=== PATIENT | female | born 1965 | race Caucasian/White ===

== ENCOUNTER 2018-10-19 08:39 | Emergency (ER) | payer MEDICAID ==
[~2018-10-19] VITALS: Ht 175.3 cm; Wt 58.8 kg
[2018-10-19 08:49] VITALS: BP 127/80
[2018-10-19] MEDS ORDERED: CEPH-572 PO (09:38)
[2018-10-19] MEDS ORDERED: SULF1TAB49 PO (09:38)
== END 2018-10-19 09:56 | disposition home or self-care (01) ==
LOC: ER 08:40
DX: L03.011 Cellulitis of right finger (principal); F17.200 Nicotine dependence, unspecified, uncomplicated; Z88.1 Allergy status to other antibiotic agents; Z88.8 Allergy status to other drugs, medicaments and biological substances; Z79.899 Other long term (current) drug therapy
CPT/HCPCS: 73130; 99283

== ENCOUNTER 2019-04-10 10:10 | Inpatient (IN) | payer MEDICAID ==
[~2019-04-10] VITALS: Ht 172.7 cm; Wt 74.5 kg
[~2019-04-10 10:10] MED LIST: atropine 0.1mg/ml 10ml syringe ONE; calcium chloride 100 MG/1 ML inj IV ONE; dextrose 50%-water 50ml dispensing syringe IV ONE; epiNEPHrine 0.1mg/ml 10ml syringe ONE; sodium bicarbonate (8.4%) 1 mEq/ml syringe ONE
--- NOTE | 2019-04-10 10:20 | NUR ---
CALLED PT TO TRIAGE AND SHE IS IN LOBBY BATHROOM
[2019-04-10 11:40] LABS: BASOPHILS # (AUTO) 0.1 X10'3 (0-0.2); BASOPHILS % (AUTO) 0.2 % (0-1); EOSINOPHILS % (AUTO) 0.2 % (0-6); HEMATOCRIT 57.2 % (35.0-45.0); LYMPHOCYTES # (AUTO) 3.3 X10'3 (1.1-4.8); LYMPHOCYTES % (AUTO) 10.9 % (21-51); MEAN CORPUSCULAR HEMOGLOBIN 30.1 PG (27.0-31.0); MEAN CORPUSCULAR HGB CONC 32.6 g/dL (33.0-36.5); MEAN CORPUSCULAR VOLUME 92.5 FL (78-98); MONOCYTES # (AUTO) 1.9 X10'3 (0-0.9); MONOCYTES % (AUTO) 6.3 % (2-12); NEUTROPHILS # (AUTO) 24.7 X10'3 (1.8-7.7); NEUTROPHILS % (AUTO) 82.4 % (42-75); PLATELET COUNT 457 X10'3 (140-440); RED BLOOD COUNT 6.19 X10'6 (4.20-5.60); RED CELL DISTRIBUTION WIDTH 13.7 % (11.5-14.5)
[2019-04-10 11:49] LABS: HEMOGLOBIN 18.6 g/dl (12.0-16.0); WHITE BLOOD COUNT 29.9 X10'3 (4.5-11.0)
[2019-04-10 12:04] LABS: ALANINE AMINOTRANSFERASE 80 U/L (12-78); ALBUMIN 2.8 G/DL (3.4-5.0); ALBUMIN/GLOBULIN RATIO 0.5 (1.1-1.5); ALKALINE PHOSPHATASE 122 IU/L (46-116); ANION GAP 13 (8-16); ASPARTATE AMINO TRANSFERASE 54 U/L (10-37); BILIRUBIN,TOTAL 0.5 MG/DL (0.1-1.0); BLOOD UREA NITROGEN 30 MG/DL (7-18); BUN/CREATININE RATIO 19.7 (6.6-38.0); CALCIUM 9.5 MG/DL (8.5-10.1); CHLORIDE 95 MMOL/L (99-107); CREATININE 1.52 MG/DL (0.40-0.90); GLUCOSE 202 MG/DL (70-104); POTASSIUM 4.7 MMOL/L (3.5-5.1); SODIUM 129 MMOL/L (135-145); TOTAL CARBON DIOXIDE 21.1 MMOL/L (24-32); TOTAL PROTEIN 7.9 G/DL (6.4-8.2); eGFR 36 ML/MIN
[2019-04-10 12:54] LABS: PLATELET ESTIMATE INCREASED; TOTAL CELLS COUNTED 100; TOXIC GRANULATION 2+
[2019-04-10] MEDS ORDERED: morphine 4 MG/ML inj SYRINge IV ONE ×2 (13:35→15:55)
[2019-04-10] MEDS ORDERED: normal saline 1000ML IV soln IVB ONE ×2 (13:45→14:40)
[2019-04-10 14:35] LABS: BASOPHILS # (AUTO) 0.1 X10'3 (0-0.2); BASOPHILS % (AUTO) 0.2 % (0-1); EOSINOPHILS % (AUTO) 0.1 % (0-6); LYMPHOCYTES # (AUTO) 2.3 X10'3 (1.1-4.8); LYMPHOCYTES % (AUTO) 7.4 % (21-51); MEAN CORPUSCULAR HGB CONC 33.4 g/dL (33.0-36.5); MEAN CORPUSCULAR VOLUME 92.7 FL (78-98); MEAN PLATELET VOLUME 9.2 FL (7.4-10.4); MONOCYTES # (AUTO) 2.1 X10'3 (0-0.9); MONOCYTES % (AUTO) 6.8 % (2-12); NEUTROPHILS % (AUTO) 85.5 % (42-75); PLATELET COUNT 414 X10'3 (140-440); RED BLOOD COUNT 5.82 X10'6 (4.20-5.60); RED CELL DISTRIBUTION WIDTH 13.7 % (11.5-14.5)
[2019-04-10 14:37] LABS: WHITE BLOOD COUNT 30.4 X10'3 (4.5-11.0)
[2019-04-10] MEDS ORDERED: vancomycin/NS 1 GM ADD-VANTAGE 250 ML IV ONE (14:40)
[2019-04-10] MEDS ORDERED: piperacillin/tazo 3.375gm/50ml 50 ML IV ONE (14:40)
[2019-04-10 14:47] LABS: PARTIAL THROMBOPLASTIN TIME 31 SECONDS (22-32)
[2019-04-10 15:06] LABS: URINE HCG NEGATIVE (NEG)
[2019-04-10 15:07] LABS: CLARITY,URINE SLIGHTLY CLOUDY (Clear); COLOR,URINE YELLOW (Yellow); GLUCOSE, URINE NEGATIVE (Neg); KETONES,URINE NEGATIVE (Neg); LEUKOCYTE ESTERASE ,URINE NEGATIVE (Neg); NITRITES, URINE NEGATIVE (Neg); OCCULT BLOOD,URINE TRACE-INTACT (Neg); PH,URINE 5.5 (4.8-8.0); PROTEIN,URINE 30 mg/dl (Neg); UROBILINOGEN,URINE 0.2 E.U/dL (0.2-1.0)
[2019-04-10 15:08] LABS: UA COLLECTION TYPE CLN CATCH MIDSTREAM
[2019-04-10 15:18] LABS: BACTERIA,URINE FEW /HPF (Neg); RBC,URINE 0-2 /HPF (0-2)
[2019-04-10 15:19] LABS: FINE GRANULAR CAST 0-3 /LPF (NEGATIVE); HYALINE CASTS >30 /LPF (NEGATIVE); MUCUS STRANDS FEW /LPF (Neg); SQUAMOUS EPITHELIAL CELL,UR MODERATE /LPF (FEW); TRANSITIONAL EPI CELLS,URINE FEW /HPF; WBC CLUMPS,URINE FEW /HPF (NEGATIVE)
[2019-04-10 15:36] LABS: MAGNESIUM 1.9 MG/DL (1.5-2.4)
[2019-04-10] MEDS ORDERED: HYDR-4353 PO (16:23)
[2019-04-10] MEDS ORDERED: IBUP-1986 PO (16:23)
[2019-04-10] MEDS ORDERED: mag hydrox/Alum hydrox/simeth 30ml oral suspension PO PRN (16:25)
[2019-04-10] MEDS ORDERED: ondansetron/PF 4mg/2ml inj IV PRN (16:25)
[2019-04-10] MEDS ORDERED: acetaminophen 325mg tablet PO PRN ×2 (16:25)
[2019-04-10] MEDS ORDERED: morphine 2 MG/ML inj. syringe IV PRN (16:25)
[2019-04-10] MEDS ORDERED: potassium Cl 20 mEq SR tablet PO PRN ×2 (16:25)
[2019-04-10] MEDS ORDERED: magnesium 2GM in 50ml NS 50 ML IV PRN (16:25)
[2019-04-10] MEDS ORDERED: magnesium Cl slow-release 64mg tablet PO PRN (16:25)
[2019-04-10] MEDS ORDERED: HYDROcodone/acetaminophen 5mg/325mg tablet PO PRN (16:25)
[2019-04-10] MEDS ORDERED: potassium CL 10mEq/100ml bag 100 ML IV PRN ×2 (16:25)
[2019-04-10] MEDS ORDERED: magnesium 4gm in 100ml NS 100 ML IV PRN (16:25)
[2019-04-10] MEDS ORDERED: magnesium hydroxide 30ml (MOM) UD suspension PO PRN (16:25)
[2019-04-10] MEDS ORDERED: HYDR-3972 PO (16:28)
[2019-04-10] MEDS: normal saline 1000ml 1,000 ML IV SCH (17:10)
--- NOTE | 2019-04-10 18:25 | NUR ---
PT UP TO THE BATHROOM TO VOID. SHE LIMPS. SHE SAID THAT THIGH IS PRETTY TENDER.
--- NOTE | 2019-04-10 18:43 | NUR ---
PT ASLEEP RIGHT NOW, HER DINNER TRAY AT BS.
[2019-04-10] MEDS ORDERED: sodium bicarbonate (8.4%) 1 mEq/ml syringe ONE (20:00)
[2019-04-10] MEDS ORDERED: sod chloride 0.9% 10ml flush syringe IV ONE (20:00)
[2019-04-10] MEDS ORDERED: epiNEPHrine 0.1mg/ml 10ml syringe ONE (20:00)
[2019-04-10] MEDS ORDERED: calcium chloride 100 MG/1 ML inj IV ONE (20:00)
[2019-04-10] MEDS: HYDROcodone/acetaminophen 10/325mg tab PO PRN (20:25)
--- NOTE | 2019-04-10 20:30 | NUR ---
pt didn't eat too much of her meal. she did drink juices and eat salad. adm pain meds
[2019-04-10] MEDS: morphine 2 MG/ML inj. syringe IV PRN (22:54)
[2019-04-10] MEDS: lactobacillus rhamnosus 10,000 MMU CELLS/CAPSULE PO SCH (22:57)
[2019-04-11] VITALS: BP 155/92
[2019-04-11] MEDS ORDERED: piperacillin/tazo 3.375gm/50ml 50 ML IV SCH
[2019-04-11] MEDS: normal saline 1000ml 1,000 ML IV SCH ×2 (01:01→11:30)
[2019-04-11] MEDS: HYDROcodone/acetaminophen 10/325mg tab PO PRN (02:17)
--- NOTE | 2019-04-11 06:15 | NUR ---
Patient in room IVORY 347. I have received report from NICOLE Hampton and had the opportunity to ask questions and assume patient care.
[2019-04-11 06:30] VITALS: BP 174/100
--- NOTE | 2019-04-11 06:30 | NUR ---
Problems reprioritized. Patient report given, questions answered & plan of care reviewed with Maida RN.
[2019-04-11] MEDS: K and/or MAG REPLACEMENT MC SCH (07:31)
[2019-04-11] MEDS: morphine 2 MG/ML inj. syringe IV PRN ×2 (07:59→19:54)
[2019-04-11] MEDS ORDERED: vancomycin/NS 1 GM ADD-VANTAGE 250 ML IV SCH (08:00)
[2019-04-11] MEDS: enoxaparin 40mg/0.4ml syringe SQ SCH (08:03)
[2019-04-11] MEDS: lactobacillus rhamnosus 10,000 MMU CELLS/CAPSULE PO SCH ×2 (08:03→19:53)
[2019-04-11] MEDS: piperacillin/tazo 3.375gm/50ml 50 ML IV SCH ×2 (10:44→17:50)
--- NOTE | 2019-04-11 10:56 | NUR ---
Dr. Rosado notified of pt BP is 219/118, 194/106 hr 94, this morning was 174/100 hr 89. Not on any BP meds. She is feeling nauseated and clammy, diaphoretic.
[2019-04-11 11:00] VITALS: BP 194/106
--- NOTE | 2019-04-11 11:04 | NUR ---
Patient's primary RN, Maida, aware of patient's hypertension, symptoms and that Dr. Rosado notified.
[2019-04-11] MEDS: hydrALAZINE 20mg/ml inj. IV PRN (11:27)
[2019-04-11 12:00] VITALS: BP 149/94
[2019-04-11] MEDS ORDERED: proCHLORperazine 10 MG/2 ml inj IV PRN (12:05)
--- NOTE | 2019-04-11 12:28 | NUR ---
Malnutrition consult re: Wt loss with decreased appetite. Patient's current scaled wt is stable with documented wt of 58.8 kg using chair scale in September of this year. Pt currently on a heart healthy diet with documented 25% PO intake of breakfast with 100% PO intake of milk. Pt with mild 2+ edema to her left side and no decrease in muscle strength. Pt currently does not meet criteria for malnutrition. Will continue to follow and monitor need for ONS pending additional trends in PO intake. Addendum: 04/11/19 at [address] Amended: Links added.
--- NOTE | 2019-04-11 13:00 | NUR ---
Dr Rosado notified of pt has no IV currently & unable to place an IV, therefore unable to have CT w/contrast. Ordered to inform Dr Tafoya because he is who recommended that Dr Rosado order a CT w/contrast. Dr Tafoya states to get the CT w/contrast when an IV is obtained.
[2019-04-11 13:19] LABS: ALBUMIN 1.8 G/DL (3.4-5.0); ANION GAP 15 (8-16); BLOOD UREA NITROGEN 27 MG/DL (7-18); BUN/CREATININE RATIO 19.4 (6.6-38.0); CALCIUM 7.7 MG/DL (8.5-10.1); CHLORIDE 97 MMOL/L (99-107); CREATININE 1.39 MG/DL (0.40-0.90); GLUCOSE 238 MG/DL (70-104); MAGNESIUM 1.8 MG/DL (1.5-2.4); POTASSIUM 4.9 MMOL/L (3.5-5.1); SODIUM 126 MMOL/L (135-145); eGFR 40 ML/MIN
[2019-04-11 13:21] LABS: TOTAL CARBON DIOXIDE 14.3 MMOL/L (24-32)
--- NOTE | 2019-04-11 15:19 | NUR ---
dr. dickerson at [facility] for central line placement.
[2019-04-11] MEDS ORDERED: morphine 4 MG/ML inj SYRINge IM STA (15:24)
[2019-04-11] MEDS ORDERED: LIDOcaine 1% 30ml preserv. free vial IJ STA ×2 (15:36→15:39)
--- NOTE | 2019-04-11 15:42 | NUR ---
thom RN at bedside.
--- NOTE | 2019-04-11 15:49 | NUR ---
sap security architect to dress ccentral line.
[2019-04-11] MEDS ORDERED: iohexol 300mg/ml 100ml inj. ONE (16:18)
--- NOTE | 2019-04-11 17:00 | NUR ---
1500:Took pt to ER room 6 for central line placement via WC. After Central line xray completed pt transported via WC to CT scan then returned to 347A @ 1645.
[2019-04-11] MEDS: sodium bicarbonate (8.4%) inj. 100 MEQ in dextrose 5%-water 1,000 ML IV SCH (17:50)
[2019-04-11] MEDS: vancomycin/NS 1 GM ADD-VANTAGE 250 ML IV SCH (17:50)
[2019-04-11] MEDS ORDERED: sodium bicarbonate (8.4%) inj. 50 MEQ in normal saline 1000ml 1,000 ML IV SCH (17:55)
[2019-04-11 18:00] VITALS: BP 194/103
--- NOTE | 2019-04-11 18:30 | NUR ---
Problems reprioritized. Patient report given, questions answered & plan of care reviewed with NICOLE Driver.
--- NOTE | 2019-04-11 18:36 | NUR ---
Patient in room IVORY 347. I have received report from NICOLE Bey and had the opportunity to ask questions and assume patient care.
[2019-04-11 20:05] LABS: BASOPHILS # (AUTO) 0.1 X10'3 (0-0.2); BASOPHILS % (AUTO) 0.3 % (0-1); EOSINOPHILS % (AUTO) 0 % (0-6); HEMATOCRIT 52.3 % (35.0-45.0); HEMOGLOBIN 17.2 g/dl (12.0-16.0); LYMPHOCYTES # (AUTO) 1.6 X10'3 (1.1-4.8); LYMPHOCYTES % (AUTO) 5.1 % (21-51); MEAN CORPUSCULAR HEMOGLOBIN 30.5 PG (27.0-31.0); MEAN CORPUSCULAR HGB CONC 32.9 g/dL (33.0-36.5); MEAN CORPUSCULAR VOLUME 92.7 FL (78-98); MEAN PLATELET VOLUME 9.8 FL (7.4-10.4); MONOCYTES # (AUTO) 2.3 X10'3 (0-0.9); NEUTROPHILS # (AUTO) 28.1 X10'3 (1.8-7.7); NEUTROPHILS % (AUTO) 87.6 % (42-75); PLATELET COUNT 369 X10'3 (140-440); RED BLOOD COUNT 5.63 X10'6 (4.20-5.60)
[2019-04-11 20:09] LABS: WHITE BLOOD COUNT 32.1 X10'3 (4.5-11.0)
[2019-04-11 20:30] VITALS: BP 143/91
[2019-04-11 21:49] LABS: ANISOCYTOSIS 1+; PLATELET ESTIMATE NORMAL; TOTAL CELLS COUNTED 100; TOXIC GRANULATION 1+
[2019-04-11] MEDS ORDERED: dextrose ORAL solution 15 GM/59 ML bottle PO PRN ×2 (22:05)
[2019-04-11] MEDS ORDERED: insulin Lispro (HumaLOG) vial - multi-dose SQ SCH (22:05)
[2019-04-11] MEDS ORDERED: dextrose 50%-water 50ml dispensing syringe IV PRN (22:05)
[2019-04-11] MEDS ORDERED: glucagon, human recombinant 1mg kit SUBCUT PRN (22:05)
[2019-04-11] MEDS: insulin glargine (Lantus) pen - multi-dose SQ SCH (23:04)
[2019-04-12] VITALS: BP 147/98
[2019-04-12] MEDS: sodium bicarbonate (8.4%) inj. 100 MEQ in dextrose 5%-water 1,000 ML IV SCH ×2 (00:55→15:05)
[2019-04-12] MEDS: piperacillin/tazo 3.375gm/50ml 50 ML IV SCH ×3 (02:12→18:01)
[2019-04-12] MEDS ORDERED: SODIUM CHLORIDE IV SCH (02:55)
[2019-04-12] MEDS ORDERED: SODIUM BICARBONATE IV SCH (02:55)
[2019-04-12] MEDS: normal saline 1000ml 1,000 ML IV SCH ×2 (03:11→09:34)
[2019-04-12 04:29] LABS: BASOPHILS # (AUTO) 0.1 X10'3 (0-0.2); BASOPHILS % (AUTO) 0.2 % (0-1); EOSINOPHILS % (AUTO) 0 % (0-6); HEMATOCRIT 54.4 % (35.0-45.0); LYMPHOCYTES # (AUTO) 2.2 X10'3 (1.1-4.8); LYMPHOCYTES % (AUTO) 7.7 % (21-51); MEAN CORPUSCULAR HEMOGLOBIN 30.4 PG (27.0-31.0); MEAN CORPUSCULAR HGB CONC 33.5 g/dL (33.0-36.5); MEAN CORPUSCULAR VOLUME 90.8 FL (78-98); MONOCYTES # (AUTO) 2.5 X10'3 (0-0.9); MONOCYTES % (AUTO) 8.9 % (2-12); NEUTROPHILS # (AUTO) 23.9 X10'3 (1.8-7.7); NEUTROPHILS % (AUTO) 83.2 % (42-75); PLATELET COUNT 318 X10'3 (140-440); RED BLOOD COUNT 5.99 X10'6 (4.20-5.60); RED CELL DISTRIBUTION WIDTH 13.8 % (11.5-14.5)
[2019-04-12 04:36] LABS: ALBUMIN 1.4 G/DL (3.4-5.0); ANION GAP 7 (8-16); BLOOD UREA NITROGEN 35 MG/DL (7-18); BUN/CREATININE RATIO 25.9 (6.6-38.0); CALCIUM 7.3 MG/DL (8.5-10.1); CHLORIDE 98 MMOL/L (99-107); CREATININE 1.35 MG/DL (0.40-0.90); GLUCOSE 144 MG/DL (70-104); MAGNESIUM 1.9 MG/DL (1.5-2.4); SODIUM 128 MMOL/L (135-145); eGFR 41 ML/MIN
[2019-04-12 04:44] LABS: HEMOGLOBIN 18.2 g/dl (12.0-16.0); WHITE BLOOD COUNT 28.7 X10'3 (4.5-11.0)
--- NOTE | 2019-04-12 06:20 | NUR ---
Problems reprioritized. Patient report given, questions answered & plan of care reviewed with NICOLE Garnica. Addendum: 04/12/19 at 0621 by Guillermo Cortez RN Problems reprioritized. Patient report given, questions answered & plan of care reviewed with NICOLE Arnold.
[2019-04-12 07:00] VITALS: BP 148/103
--- NOTE | 2019-04-12 07:07 | NUR ---
Patient in room IVORY 347. I have received report from Villa RIVERA and had the opportunity to ask questions and assume patient care.
[2019-04-12] MEDS: lactobacillus rhamnosus 10,000 MMU CELLS/CAPSULE PO SCH ×2 (07:37→20:24)
[2019-04-12] MEDS: HYDROcodone/acetaminophen 10/325mg tab PO PRN (07:37)
[2019-04-12] MEDS: hydrALAZINE 20mg/ml inj. IV PRN (07:37)
[2019-04-12] MEDS: enoxaparin 40mg/0.4ml syringe SQ SCH (07:38)
[2019-04-12] MEDS: K and/or MAG REPLACEMENT MC SCH (08:00)
[2019-04-12] MEDS: morphine 2 MG/ML inj. syringe IV PRN (08:58)
[2019-04-12 11:30] VITALS: BP 121/87
[2019-04-12 12:30] LABS: ALBUMIN 1.3 G/DL (3.4-5.0); ANION GAP 9 (8-16); BLOOD UREA NITROGEN 36 MG/DL (7-18); BUN/CREATININE RATIO 32.1 (6.6-38.0); CALCIUM 7.1 MG/DL (8.5-10.1); CHLORIDE 98 MMOL/L (99-107); CREATININE 1.12 MG/DL (0.40-0.90); GLUCOSE 115 MG/DL (70-104); POTASSIUM 5.9 MMOL/L (3.5-5.1); SODIUM 127 MMOL/L (135-145); TOTAL CARBON DIOXIDE 19.7 MMOL/L (24-32); eGFR 51 ML/MIN
[2019-04-12] MEDS ORDERED: sodium polystyrene sulfonate 15gm/60ml oral suspension PO ONE (14:05)
[2019-04-12] MEDS: vancomycin/NS 1 GM ADD-VANTAGE 250 ML IV SCH (15:09)
--- NOTE | 2019-04-12 17:17 | NUR ---
patient seen by Dr Allan and DR Mcdowell, continue with ABX. K 5.[address] allan. Fluids changed see EMAR. medicated for pain x2.B/P this am was 148/103 medicated with Hydralazine. Rechecked b/p 127/87. Alonzo aware. will continue to monitor.
[2019-04-12 18:00] VITALS: BP 160/100
--- NOTE | 2019-04-12 18:52 | NUR ---
Problems reprioritized. Patient report given, questions answered & plan of care reviewed with UVALDO RIVERA.
--- NOTE | 2019-04-12 18:56 | NUR ---
Patient in room IVORY 347. I have received report from NICOLE Arnold and had the opportunity to ask questions and assume patient care. Addendum: 04/12/19 at 1857 by Lore Shankar RN Amended: Links added.
[2019-04-12] MEDS ORDERED: insulin glargine (Lantus) pen - multi-dose SQ SCH (21:00)
[2019-04-12] MEDS: insulin glargine (Lantus) pen - multi-dose SQ SCH (21:00)
[2019-04-13] VITALS (16 sets, daily range): BP systolic 27–185; BP diastolic 9–113
[2019-04-13] MEDS: piperacillin/tazo 3.375gm/50ml 50 ML IV SCH ×2 (02:05→09:20)
[2019-04-13] MEDS: sodium bicarbonate (8.4%) inj. 100 MEQ in dextrose 5%-water 1,000 ML IV SCH (02:06)
[2019-04-13] MEDS: morphine 2 MG/ML inj. syringe IV PRN ×3 (03:04→19:32)
[2019-04-13 05:18] LABS: BASOPHILS % (AUTO) 0.2 % (0-1); EOSINOPHILS # (AUTO) 0.1 X10'3 (0-0.9); EOSINOPHILS % (AUTO) 0.6 % (0-6); HEMATOCRIT 55.7 % (35.0-45.0); LYMPHOCYTES # (AUTO) 1.7 X10'3 (1.1-4.8); LYMPHOCYTES % (AUTO) 7.9 % (21-51); MEAN CORPUSCULAR HEMOGLOBIN 30.6 PG (27.0-31.0); MEAN CORPUSCULAR HGB CONC 33.5 g/dL (33.0-36.5); MEAN CORPUSCULAR VOLUME 91.4 FL (78-98); MEAN PLATELET VOLUME 9.8 FL (7.4-10.4); MONOCYTES # (AUTO) 1.7 X10'3 (0-0.9); MONOCYTES % (AUTO) 7.9 % (2-12); NEUTROPHILS # (AUTO) 18.1 X10'3 (1.8-7.7); NEUTROPHILS % (AUTO) 83.4 % (42-75); PLATELET COUNT 264 X10'3 (140-440); RED BLOOD COUNT 6.09 X10'6 (4.20-5.60); RED CELL DISTRIBUTION WIDTH 13.8 % (11.5-14.5); WHITE BLOOD COUNT 21.7 X10'3 (4.5-11.0)
[2019-04-13 05:23] LABS: HEMOGLOBIN 18.6 g/dl (12.0-16.0)
[2019-04-13 05:47] LABS: ANION GAP 8 (8-16); BLOOD UREA NITROGEN 43 MG/DL (7-18); BUN/CREATININE RATIO 35.8 (6.6-38.0); CALCIUM 6.7 MG/DL (8.5-10.1); CHLORIDE 95 MMOL/L (99-107); GLUCOSE 149 MG/DL (70-104); POTASSIUM 5.1 MMOL/L (3.5-5.1); SODIUM 127 MMOL/L (135-145); TOTAL CARBON DIOXIDE 24.5 MMOL/L (24-32); eGFR 47 ML/MIN
--- NOTE | 2019-04-13 06:05 | NUR ---
Patient in room IVORY 347. I have received report from Jud Ornelas RN and had the opportunity to ask questions and assume patient care.
--- NOTE | 2019-04-13 06:12 | NUR ---
Problems reprioritized. Patient report given, questions answered & plan of care reviewed with NICOLE Castillo. Addendum: 04/13/19 at 0615 by Lore Shankar RN Amended: Links added.
[2019-04-13] MEDS: lactobacillus rhamnosus 10,000 MMU CELLS/CAPSULE PO SCH ×2 (07:49→20:00)
[2019-04-13] MEDS: enoxaparin 40mg/0.4ml syringe SQ SCH (07:50)
[2019-04-13] MEDS: K and/or MAG REPLACEMENT MC SCH (08:00)
--- NOTE | 2019-04-13 11:00 | NUR ---
Unable to find patients pulse in her left foot or left posterior tibial with a doppler this am during my assessment around 0800. Let Sharla charge coordinator know and she went it to check as well and couldn't find any pulses with the doppler. Dr. Rosado is aware.
[2019-04-13] MEDS: normal saline 1000ml 1,000 ML IV SCH ×2 (11:35→19:37)
[2019-04-13 14:03] LABS: CREATINE KINASE 19813 U/L (26-192)
[2019-04-13 14:20] LABS: HIV ANTIBODY 1&2 RAPID NON-REACTIVE (Neg)
[2019-04-13] MEDS ORDERED: VANCOMYCIN LEVEL IV ONE (15:30)
[2019-04-13] MEDS: vancomycin/NS 1 GM ADD-VANTAGE 250 ML IV SCH (15:34)
--- NOTE | 2019-04-13 18:35 | NUR ---
Problems reprioritized. Patient report given, questions answered & plan of care reviewed with Kirti RN.
--- NOTE | 2019-04-13 19:00 | NUR ---
shift change report received from NICOLE Castillo; pt in bed; very lethargic; PCT in do do routine VS's; reports significant change in status compared to working with pt judy shift production associate; rapid response called...
[2019-04-13] MEDS ORDERED: normal saline 500ml IV soln 500 ML IV ONE (19:25)
[2019-04-13 19:30] LABS: OXYGEN SATURATION (MIXED VEN) 40.6 % (60-80); PO2 MIXED VENOUS (TEMP COR) 26.6 mmHg (35-46)
--- NOTE | 2019-04-13 19:35 | NUR ---
pt only voided 50ml; bladder scan done after void with results of 50ml Addendum: 04/13/19 at 2148 by Chacha Rios RN Amended: Links added.
[2019-04-13 19:36] LABS: BASOPHILS # (AUTO) 0.1 X10'3 (0-0.2); BASOPHILS % (AUTO) 0.3 % (0-1); EOSINOPHILS # (AUTO) 0.1 X10'3 (0-0.9); EOSINOPHILS % (AUTO) 0.4 % (0-6); HEMATOCRIT 54.1 % (35.0-45.0); LYMPHOCYTES # (AUTO) 1.6 X10'3 (1.1-4.8); LYMPHOCYTES % (AUTO) 7.3 % (21-51); MEAN CORPUSCULAR HEMOGLOBIN 30.3 PG (27.0-31.0); MEAN CORPUSCULAR HGB CONC 33.3 g/dL (33.0-36.5); MEAN PLATELET VOLUME 9.2 FL (7.4-10.4); MONOCYTES # (AUTO) 1.5 X10'3 (0-0.9); NEUTROPHILS # (AUTO) 18.5 X10'3 (1.8-7.7); PLATELET COUNT 224 X10'3 (140-440); RED BLOOD COUNT 5.94 X10'6 (4.20-5.60); RED CELL DISTRIBUTION WIDTH 13.8 % (11.5-14.5); WHITE BLOOD COUNT 21.8 X10'3 (4.5-11.0)
[2019-04-13 19:43] LABS: ALBUMIN 0.9 G/DL (3.4-5.0); ANION GAP 6 (8-16); BLOOD UREA NITROGEN 55 MG/DL (7-18); BUN/CREATININE RATIO 31.8 (6.6-38.0); CALCIUM 6.1 MG/DL (8.5-10.1); CHLORIDE 94 MMOL/L (99-107); CREATININE 1.73 MG/DL (0.40-0.90); GLUCOSE 88 MG/DL (70-104); SODIUM 123 MMOL/L (135-145); TOTAL CARBON DIOXIDE 23.5 MMOL/L (24-32); eGFR 31 ML/MIN
[2019-04-13 19:46] LABS: PARTIAL THROMBOPLASTIN TIME 53 SECONDS (22-32); POTASSIUM 6.1 MMOL/L (3.5-5.1)
[2019-04-13 19:53] LABS: URINE AMPHETAMINE SCREEN POSITIVE (Neg); URINE BARBITUATE SCREEN NEGATIVE (Neg); URINE BENZODIAZEPINES SCREEN NEGATIVE (Neg); URINE CANNABINOID SCREEN POSITIVE (Neg); URINE COCAINE SCREEN NEGATIVE (Neg); URINE METHADONE SCREEN NEGATIVE (Neg); URINE OPIATE SCREEN POSITIVE (Neg); URINE PHENCYCLIDINE SCREEN NEGATIVE (Neg)
[2019-04-13] MEDS ORDERED: albuterol 2.5 MG/3 ML nebule NEB ONE (20:05)
--- NOTE | 2019-04-13 20:30 | NUR ---
unable to get o2 sats; RT notified by supercharger mechanic
--- NOTE | 2019-04-13 20:45 | NUR ---
report given to Ismael RN in critical care; questions answered; pt ready for transfer to units at this time via her bed & all her belongings; Tommy Mckoy notified of pt's transfer (per pt request)
[2019-04-13] MEDS: insulin glargine (Lantus) pen - multi-dose SQ SCH (21:00)
[2019-04-13] MEDS ORDERED: normal saline 1000ml 1,000 ML IV ONE (21:10)
[2019-04-13] MEDS ORDERED: NORepinephrine 8mg/ 250ml NS 250 ML IV ONE (21:37)
[2019-04-13] MEDS ORDERED: albumin (Human) 5% 250ml 500 ML IV ONE (21:40)
[2019-04-13] MEDS ORDERED: calcium chloride 100 MG/1 ML inj IV ONE (21:45)
[2019-04-13] MEDS: diatr meglu/diatrizoate 30ml oral sol.-(3 dose) bottle PO SCH (21:52)
[2019-04-13] MEDS ORDERED: albumin (Human) 5% 250ml 250 ML IV ONE ×2 (21:55)
[2019-04-13] MEDS ORDERED: calcium chloride inj. 1,000 MG in normal saline 100ml IV soln 90 ML IV ONE (21:55)
--- NOTE | 2019-04-13 23:50 | NUR ---
ADMIT TO ICU SUMMARY. PATIENT ARRIVED TO UNIT NEAR 2049. PATIENT WAS EXTREMELY MOTTLED HEAD TO TOE B/L. b/l knees GREATLY DISCOLORED DARK PURPLE. NEUROLOGICALLY PATIENT WAS INTACT, WEAK, MOVED X4 WEAKLY. C/O PAIN IN ABDOMEN, BACK AND LLE. UNABLE TO LIFT LLE OFF THE BED DUE TO HEAVY AND SWOLLEN. MOST DISTAL PULSES ARE ONLY FOUND BY DOPPLER AT RIGHT POPLITEAL AND LEFT FEMORAL BY DOPPLER. PERIAREA IS EDEMATOUS AND TIGHT. PATIENT IS NOT COMPLAINING OF SOB ON ARRIVAL TO UNIT. 2 LNC AND B/L ARE CLEAR. SR WITH NO ECTOPY ON MONITOR. PATIENT DENIES SP. NIBP CUFF ON RUE WAS STABLE AT ARRIVAL WITH MILLER TEMP (#16 FR PLACED AT ADMIT TO ICU PER ORDER)MILLER TEMP WAS READING 37.5. PATIENT ALSO STATED SHE WAS TOO WARM. BARE HUGGER ON THEN PATIENT BECOMES HYPOTENSIVE - READING AT 213 WAS 53/28 (36), FOLLOW UP AT 2137 WAS READING 27/15 (15). IMMEDIATELY HUNG A NS BOLUS 1 L (PER ORDER), SAME TIME STARTED LEVOPHED GTT (PER ORDER) AND REPLACED NIBP CUFF WITH A SMALLER SIZE. F/U BP 92/41(58). PATIENT ALBUMIN FOUND TO 0.9 SO ADDITIONALLY HUNG UP 2 X 250 ML 5% ALBUMIN (25 G TOTAL). PATIENT BLOOD PRESSURE STABILIZED AFTER ALL INTERVENTIONS. ABDOMEN IS SEMI FIRM, HYPO ACTIVE BS. DENIES N/V. PAIN IMPROVED WE SETTLED PATIENT IN, WARMED HER UP, STABILIZED BP ETC. NPO FOR PROCEDURE IN AM (CTA ABD AND PELVIS). GASTROGRAFIN GIVEN PO. NO COMPLICATIONS. MINIMAL ICE CHIPS PATIENT TONGUE IS EXTREMELY DRY AND SHE HAS DIFFICULTY SPEAKING. MILLER PLACED. INITIAL OUT PUT WAS 30 ML CLOUDY PALE YELLOW URINE. ACCESS IS AT RIGHT IJ - TLC PLACED PRIOR TO ADMIT TO ICU. DRESSING IS NOT DATED. DIFFICULTY GETTING BLOOD RETURN - POSITIONAL. LINE IS NOT SUTURED. CVP CONNECTED - INITIAL READINGS 2-4. SKIN APPEARS TO BE INTACT. VAST TATTOOS ACROSS ENTIRE BODY. SMALL QUARTER SIZED CIRCULAR AREA ON LEFT UPPER THIGH. I ASKED PATIENT IF SHE KNEW IF SHE HAD RING WORM AT ALL . PER PATIENT THE AREA IS A BURN DUE TO " A HOT PIPE FROM PRE ADMIT TO [facility]. BACK INTACT. SKIN ISSUES CURRENTLY IS THE EXTENSIVE MOTTLING. BARE HUGGER ON. HEAD WRAPPED IN A WARM BLANKET. TEMP CURRENTLY IS 36.4 AND PATIENT IS COMPLAINING OF BEING TOO HOT. BARE HUGGER OFF NOW FOR PATIENT COMFORT. PATIENT CURRENTLY DENIES PAIN AND RESP DISTRESS. VSS, NS INFUSES AT 125 ML/HR. LEVOPHED CURRENTLY OFF. MOTTLING HAS IMPROVED IMMENSELY WELL PATIENT STATES HOW MUCH BETTER SHE FEELS SINCE FIRST GETTING HERE. COLOR IN FACE IMPROVED, MORE ALERT ETC. ALL PROCEDURES EXPLAINED. SUPPORT GIVEN Addendum: 04/14/19 at 0016 by Ismael Casillas RN PATIENT ALSO RECEIVED 1 GM CALCIUM CHLORIDE IVMB PER ORDER DURING THE HYPOTENSIVE EPISODE NEAR 21:30 Addendum: 04/14/19 at 0107 by Ismael Casillas RN CORRECTION TO ABOVE "PATIENT DENIES SP". PATIENT DENIES CP (CHEST PAIN). PATIENT STATED NO CHEST PAIN SINCE SHE WAS IN THE E.D. Addendum: 04/14/19 at 0629 by Ismael Casillas RN adendum to initial assessment - quad lumen catheter very positional for blood return, finally blood return on cvp. site cdi, the cordis is out with end not sutured but the introducer is sutured at the right ij.
[2019-04-14] VITALS (37 sets, daily range): BP systolic 70–157; BP diastolic 37–120
[2019-04-14] MEDS: normal saline 1000ml 1,000 ML IV SCH ×3 (00:25→16:09)
[2019-04-14] MEDS: morphine 2 MG/ML inj. syringe IV PRN ×3 (01:01→08:06)
--- NOTE | 2019-04-14 01:15 | NUR ---
CALL TO CHARMAINE HIGH DUE TO U/O HAS ONLY BEEN 10 ML /HR AND CVP ONLY 2. ORDERS GIVEN FOR 500 ML NS BOLUS X1. Addendum: 04/14/19 at 0141 by Ismael Casillas RN ADDENDUM - I AM STILL UNABLE TO GET A CONTINUOUS READING ON THE SAT MONITOR. DIFFERENT PROBES, DIFFERENT SITES AND DIFFERENT EQUIPMENT. PATIENT COLOR OVER ALL IS WNL, NO CYANOSIS, OCCASIONAL POOR WAVEFORM ON MONITOR READS 95 -98 %.
[2019-04-14] MEDS ORDERED: normal saline 500ml IV soln 500 ML IV ONE (01:30)
[2019-04-14 03:16] LABS: BASOPHILS % (AUTO) 0.2 % (0-1); EOSINOPHILS # (AUTO) 0.3 X10'3 (0-0.9); EOSINOPHILS % (AUTO) 1.5 % (0-6); HEMATOCRIT 49.7 % (35.0-45.0); HEMOGLOBIN 16.6 g/dl (12.0-16.0); LYMPHOCYTES # (AUTO) 1.6 X10'3 (1.1-4.8); LYMPHOCYTES % (AUTO) 6.7 % (21-51); MEAN CORPUSCULAR HEMOGLOBIN 30.4 PG (27.0-31.0); MEAN CORPUSCULAR HGB CONC 33.4 g/dL (33.0-36.5); MEAN CORPUSCULAR VOLUME 90.9 FL (78-98); MEAN PLATELET VOLUME 8.4 FL (7.4-10.4); MONOCYTES # (AUTO) 1.6 X10'3 (0-0.9); MONOCYTES % (AUTO) 6.7 % (2-12); NEUTROPHILS # (AUTO) 20.1 X10'3 (1.8-7.7); NEUTROPHILS % (AUTO) 84.9 % (42-75); PLATELET COUNT 195 X10'3 (140-440); RED BLOOD COUNT 5.47 X10'6 (4.20-5.60); WHITE BLOOD COUNT 23.7 X10'3 (4.5-11.0)
--- NOTE | 2019-04-14 03:17 | NUR ---
REASSESSED PULSES. RLE HAS POSITIVE DOPPLER DP AND PT. EXTREMITIES COOL AND MOTTLED BUT COLOR IMPROVED TREMENDOUSLY . PINK HUE TO EXTREMITIES WHERE EARLIER WERE CALVERT AND PURPLE. LLE WITH OUT CHANGE IN TERMS OF EDEMA AND TIGHTNESS, PATIENT STILL CAN BARELY LIFT OFF THE BED. POSITIVE PT WITH DOPPLER ON LLE BUT DP ARE ABSENT. SHARPIE "X";S ON SITE OF PULSES THAT WERE DOPPLERED. PATIENT DENIES PAIN, RESP DISTRESS AND N/V. VSS, U/O IMPROVED AFTER THE BOLUS. QS SEE I/O SHEET
[2019-04-14 03:26] LABS: ALBUMIN 1.5 G/DL (3.4-5.0); ANION GAP 7 (8-16); BLOOD UREA NITROGEN 59 MG/DL (7-18); BUN/CREATININE RATIO 39.6 (6.6-38.0); CALCIUM 6.3 MG/DL (8.5-10.1); CHLORIDE 98 MMOL/L (99-107); CREATININE 1.49 MG/DL (0.40-0.90); GLUCOSE 83 MG/DL (70-104); MAGNESIUM 1.7 MG/DL (1.5-2.4); POTASSIUM 5.5 MMOL/L (3.5-5.1); SODIUM 125 MMOL/L (135-145); TOTAL CARBON DIOXIDE 20.3 MMOL/L (24-32); eGFR 37 ML/MIN
[2019-04-14 07:09] LABS: CREATINE KINASE 17428 U/L (26-192)
--- NOTE | 2019-04-14 07:30 | NUR ---
Patient in room ICU 2041. I have received report from Ismael Gibbs RN and had the opportunity to ask questions and assume patient care.
[2019-04-14] MEDS: K and/or MAG REPLACEMENT MC SCH (07:48)
[2019-04-14] MEDS: lactobacillus rhamnosus 10,000 MMU CELLS/CAPSULE PO SCH ×2 (08:02→20:00)
[2019-04-14] MEDS: diatr meglu/diatrizoate 30ml oral sol.-(3 dose) bottle PO SCH ×2 (08:02→21:00)
[2019-04-14] MEDS: enoxaparin 40mg/0.4ml syringe SQ SCH (08:02)
[2019-04-14] MEDS ORDERED: midazolam 2 mg/2 ml injection ONE ×2 (09:10→11:09)
[2019-04-14] MEDS ORDERED: insulin regular, human 10 units/0.1 ml syringe IV ONE (09:25)
[2019-04-14] MEDS ORDERED: dextrose 50%-water 50ml dispensing syringe IV ONE (09:25)
[2019-04-14] MEDS ORDERED: sodium polystyrene sulfonate 15gm/60ml oral suspension PO ONE (09:25)
--- NOTE | 2019-04-14 09:30 | NUR ---
Patient asked hair designer to come into room, hair designer retrieved Gia Vazquez RN. Patient states she was having a difficult time breathing. Patient had large dilated pupils, became unresponsive and "stopped breathing". Code blue was called. 1amp epi, 1 amp dextrose, 1 amp of atropine given, several minutes of CPR, patient intubated by Dr. White. Dr. John arrives at bedside. Patient was in PEA, no pulses felt. Patient regained consciousness and CPR was stopped with ROSC sinus tachycardia with wide QRS. Dr. John ordered 1amp of calcium chloride to be given for which wide QRS resolved.
[2019-04-14 09:37] LABS: BASOPHILS % (AUTO) 0.2 % (0-1); EOSINOPHILS # (AUTO) 0.3 X10'3 (0-0.9); EOSINOPHILS % (AUTO) 1.5 % (0-6); HEMATOCRIT 42.7 % (35.0-45.0); HEMOGLOBIN 13.7 g/dl (12.0-16.0); LYMPHOCYTES # (AUTO) 2.5 X10'3 (1.1-4.8); MEAN CORPUSCULAR HEMOGLOBIN 30.3 PG (27.0-31.0); MEAN CORPUSCULAR HGB CONC 32.2 g/dL (33.0-36.5); MEAN CORPUSCULAR VOLUME 94.2 FL (78-98); MEAN PLATELET VOLUME 9.7 FL (7.4-10.4); MONOCYTES # (AUTO) 1.2 X10'3 (0-0.9); MONOCYTES % (AUTO) 5.5 % (2-12); NEUTROPHILS % (AUTO) 80.8 % (42-75); PLATELET COUNT 145 X10'3 (140-440); RED BLOOD COUNT 4.53 X10'6 (4.20-5.60); RED CELL DISTRIBUTION WIDTH 14.3 % (11.5-14.5); WHITE BLOOD COUNT 21.1 X10'3 (4.5-11.0)
--- NOTE | 2019-04-14 09:39 | NUR ---
Friend, Daryl visited, asked him to come back later.
--- NOTE | 2019-04-14 09:57 | NUR ---
Updated Dr. Moore, she will be in to assess the patient "in about an hour".
[2019-04-14 10:05] LABS: ABG BASE EXCESS -14.9 mmol/L (-2.0-3.0); ABG HCO3 10.3 mmol/L (22.0-26.0); ABG OXYGEN SATURATION 99.7 % (95-98); ABG PCO2 (T) 23.3 mmHg (35.0-45.0); ABG PH (T) 7.258 (7.350-7.450); ABG PO2 (T) 442.1 mmHg (83-108); FCOHb 0.3 % (0.5-1.5); FMetHb 0.3 % (0.3-1.12); FO2Hb 99.1 % (94-100); MINUTE VOLUME 15 L/min; PEEP 5 cm H2O; RESPIRATORY RATE 18 b/min; RESPIRATORY RATE (OBSERVED) 28 b/min; TIDAL VOLUME 450 mL
--- NOTE | 2019-04-14 10:19 | NUR ---
Updated Dr. John during critical care rounds along with multidisciplinary team. I informed him that I spoke to Dr. Moore, she will be in soon. And that I put a call out to Dr. Tafoya, but have not heard back yet. Dr. John stated that he will be contacting Dr. Tafoya.
[2019-04-14 10:37] LABS: ALANINE AMINOTRANSFERASE 643 U/L (12-78); ALBUMIN 0.7 G/DL (3.4-5.0); ALBUMIN/GLOBULIN RATIO 0.4 (1.1-1.5); ALKALINE PHOSPHATASE 88 IU/L (46-116); ANION GAP 12 (8-16); ASPARTATE AMINO TRANSFERASE 818 U/L (10-37); BILIRUBIN,TOTAL 0.4 MG/DL (0.1-1.0); BLOOD UREA NITROGEN 61 MG/DL (7-18); BUN/CREATININE RATIO 28.1 (6.6-38.0); CHLORIDE 99 MMOL/L (99-107); CREATININE 2.17 MG/DL (0.40-0.90); GLUCOSE 341 MG/DL (70-104); SODIUM 125 MMOL/L (135-145); TOTAL PROTEIN 2.3 G/DL (6.4-8.2); eGFR 24 ML/MIN
[2019-04-14 10:39] LABS: CALCIUM 5.7 MG/DL (8.5-10.1); POTASSIUM 6.8 MMOL/L (3.5-5.1); TOTAL CARBON DIOXIDE 13.6 MMOL/L (24-32)
[2019-04-14 11:10] LABS: TOTAL CELLS COUNTED 100
[2019-04-14 11:11] LABS: NUCLEATED RED BLOOD CELLS 2 /100WBC (0-0); PLATELET ESTIMATE NORMAL
[2019-04-14 11:18] LABS: SMUDGE CELLS 1+
[2019-04-14] MEDS ORDERED: normal saline 1000ml 1,000 ML IV ONE ×2 (11:30→18:25)
[2019-04-14] MEDS ORDERED: iohexol 350MG/ML 100ml bottle IV ONE (11:51)
[2019-04-14] MEDS ORDERED: iohexol 350 MG/ML 50ML vial IV ONE (11:51)
--- NOTE | 2019-04-14 11:55 | NUR ---
Patient taken to CT.
--- NOTE | 2019-04-14 12:28 | NUR ---
Initial: Pt intubated s/p code blue this AM r/t hyperkalemia per derrick boat captain. K 5.5 to receive Kayexalate. Na 125 receiving NS as well. Pt receiving warming blanket w/ surgeon consulted given no pulses lower extremity concerns for compartment syndrome. Creatine Kinase elevated 43993. Pt positive for meth and opiates. New bed scale wt 76kg likely not accurate given 57kg prior chair scale wt and pt visible low wt. Pt has L side +3 pitting edema in addition to severe weakness and qualifies for severe malnutrition at this time; MD notified. Not appropriate for ed. Will monitor for nutrition support needs if prolonged intubation in catabolic state; recs below. Rec: 1. IF TF; Vital High Protein at 75ml/hr goal 2. IF TF; additional free water per derrick boat captain; Na 125 3. IF TF; prealbumin Q /, daily wts 4. upon extubation; advance diet per MD to regular Addendum: 04/14/19 at [address] Amended: Links added.
[2019-04-14] MEDS: midazolam 2 mg/2 ml injection IV PRN ×4 (12:51→20:21)
--- NOTE | 2019-04-14 12:54 | NUR ---
Patient back from CT
--- NOTE | 2019-04-14 13:37 | NUR ---
Dr. John viewed imaging for runoff, report not available. Informed him I will call him when report is available.
[2019-04-14] MEDS: dextrose 50%-water 50ml dispensing syringe IV PRN (14:34)
--- NOTE | 2019-04-14 15:41 | NUR ---
Updated Dr. John via telephone that patient CTA report is available. Dr. John stated he will look at the report. A new order is ordered for Echo due to telecom field technician stating monophasic flow throughout, no past echo.
[2019-04-14] MEDS ORDERED: CLINDAMYCIN/D5W 900mg/50ml 50 ML IV SCH (16:00)
[2019-04-14] MEDS: clindamycin-Cleocin 900mg/D5W 50 ML IV SCH (16:15)
[2019-04-14] MEDS: metroNIDAZOLE-Flagyl 500mg/NS 100 ML IV SCH (16:38)
[2019-04-14 17:57] LABS: ALBUMIN 0.8 G/DL (3.4-5.0); ALBUMIN/GLOBULIN RATIO 0.4 (1.1-1.5); ALKALINE PHOSPHATASE 109 IU/L (46-116); ANION GAP 10 (8-16); BILIRUBIN,TOTAL 0.4 MG/DL (0.1-1.0); BLOOD UREA NITROGEN 66 MG/DL (7-18); BUN/CREATININE RATIO 33.5 (6.6-38.0); CHLORIDE 103 MMOL/L (99-107); CREATININE 1.97 MG/DL (0.40-0.90); GLUCOSE 99 MG/DL (70-104); SODIUM 129 MMOL/L (135-145); TOTAL CARBON DIOXIDE 15.6 MMOL/L (24-32); TOTAL PROTEIN 2.6 G/DL (6.4-8.2); eGFR 27 ML/MIN
[2019-04-14 18:01] LABS: BASOPHILS % (AUTO) 0.2 % (0-1); EOSINOPHILS # (AUTO) 0.4 X10'3 (0-0.9); EOSINOPHILS % (AUTO) 1.8 % (0-6); HEMATOCRIT 44.9 % (35.0-45.0); HEMOGLOBIN 14.6 g/dl (12.0-16.0); LYMPHOCYTES # (AUTO) 1.2 X10'3 (1.1-4.8); LYMPHOCYTES % (AUTO) 5.7 % (21-51); MEAN CORPUSCULAR HEMOGLOBIN 30.1 PG (27.0-31.0); MEAN CORPUSCULAR HGB CONC 32.5 g/dL (33.0-36.5); MEAN CORPUSCULAR VOLUME 92.7 FL (78-98); MEAN PLATELET VOLUME 8.8 FL (7.4-10.4); MONOCYTES # (AUTO) 1.1 X10'3 (0-0.9); MONOCYTES % (AUTO) 5.5 % (2-12); NEUTROPHILS % (AUTO) 86.8 % (42-75); PLATELET COUNT 143 X10'3 (140-440); RED BLOOD COUNT 4.85 X10'6 (4.20-5.60); RED CELL DISTRIBUTION WIDTH 14.1 % (11.5-14.5); WHITE BLOOD COUNT 20.7 X10'3 (4.5-11.0)
[2019-04-14] MEDS ORDERED: heparin 1,000unit/ml 10ml vial 10 ML IV ONE (18:03)
[2019-04-14] MEDS ORDERED: normal saline 1000ml 250 ML IV PRN (18:03)
[2019-04-14 18:05] LABS: CALCIUM 5.7 MG/DL (8.5-10.1); POTASSIUM 6.3 MMOL/L (3.5-5.1)
[2019-04-14] MEDS ORDERED: calcium chloride 100 MG/1 ML inj IV ONE ×3 (18:05→20:16)
[2019-04-14 18:10] LABS: ALANINE AMINOTRANSFERASE 1450 U/L (12-78); ASPARTATE AMINO TRANSFERASE 2283 U/L (10-37)
[2019-04-14] MEDS ORDERED: heparin 1,000 units/ml 10ml inj HE ONE ×2 (18:10)
[2019-04-14] MEDS: vancomycin/NS 1 GM ADD-VANTAGE 250 ML IV SCH (18:11)
--- NOTE | 2019-04-14 18:55 | NUR ---
Problems reprioritized. Patient report given, questions answered & plan of care reviewed with Ismael DENG.
[2019-04-14] MEDS ORDERED: albumin (human) 25% 100 ML IV solution IV ONE (20:15)
[2019-04-14] MEDS ORDERED: albumin (human) 25% 100ml IV 200 ML IV ONE (20:15)
[2019-04-14] MEDS ORDERED: hydrocortisone sod succ/PF 100mg/2ml inj. IV ONE (20:25)
[2019-04-14] MEDS: insulin glargine (Lantus) pen - multi-dose SQ SCH (21:00)
--- NOTE | 2019-04-14 23:21 | NUR ---
SUMMARY OF BEGINNING OF SHIFT. NEAR 193 - PATIENT GRADUALLY BECOMES HYPOTENSIVE. HD WAS INITIATED BY HD RN RECENTLY. USED LEVOFED GTT TO MAINTAIN MAP > 65 MMHG HOWEVER BP WAS NOT IMPROVING WITH INCREASING THE GTT. CHARMAINE HIGH WAS ON UNIT. ORDER FOR CACL 1 GM - GIVEN NEAR 1999. ALSO ORDER FOR 2 X 100 ML 25% ALBUMIN. HD RN ALSO WAS ABLE TO GIVE BOLUS WITH HER CARE TREATMENT PLAN/PROTOCOL - SEE HD RN NOTES. PATIENT BP RESPONDED TO ALL TREATMENTS AND CURRENTLY WEANED BACK OFF THE LEVOFED GTT AT THE SAME TIME HD COMPLETED. VSS. PATIENT WOKE UP AGITATED DURING THIS HYPOTENSIVE EPISODE - VERSED 2 MG IV (@ 2019) GIVEN PER ORDER WHICH WORKED WELL. ANY AFFECTS ON BP WERE TREATED WITH THE LEVOFED GTT. DURING THE HYPOTENSIVE EPISODE, PATIENTS DAUGHTER CAME TO SEE PATIENT FOR THE FIRST TIME. ALL PROCEDURES EXPLAINED. ICU CARD WITH PHONE AND OTHER INFO WAS GIVEN TO DAUGHTER SUSHILA. SUPPORT GIVEN BLOOD GLUCOSE WAS CHECKED BEFORE SOLUMEDROL. RESULTS WERE 69. 12.5 G DEXTROSE GIVEN PER ORDER AND WITHIN 15 MIN, BG WAS 125. CALL FROM LAB REGARDING Q2H LACTIC ACID LAB. I CALLED CHARMAINE SALESPERSON NECKTIES TO CLARIFY THE REQUESTED LAB TIMES. PER LENNOX MONTANO - WE CAN STOP Q2H LACTIC ACID LAB AND ADD LACTATE LEVEL TO AM LABS. UPON INITIAL ASSESSMENT, OGT WAS DIFFICULT TO FLUSH AT FIRST AND THEN HEARD AIR COME FROM MOUTH. NO DRAINAGE IN THE LWS CONTAINER. KUB ORDERED TO VERIFY PLACEMENT. KUB SHOWED OGT TO NOT BE PLACED CORRECTLY. REMOVED AND NEW # 18 FR OGT PLACED. CONFIRMED PLACEMENT WITH AIR BOLUS AND GASTRIC SECRETIONS OUT IMMEDIATELY. INITIALLY ABOUT 50 ML GASTRIC BROWN. CURRENTLY AT 2330 THERE IS 375 ML BROWN GASTRIC. ABDOMEN IS VERY TIGHT SEMI FIRM. IS THE REST OF THE BODY . UPON INITIAL ASSESSMENT REGARDING PULSES...PATIENT WAS EXTREMELY MOTTLED. RLL BEST DOPPLER PULSE WAS POPLITEAL. RIGHT FEMORAL HAS AN A-LINE AND HD CATHETER. LLE DOPPLERED LEFT FEMORAL, LEFT POPLITEAL AND ALTHOUGH WEAK - ALSO DOPPLER HEARD AT LEFT POST TIB. SINCE SHIFT BEGAN, STILL UNABLE TO GET A SAT WAVE REGARDLESS OF ATTEMPTING DIFFERENT MODES, HEATING UP PARTS OF BODY. THIS IS NOT CHANGED FROM LAST NIGHTS SHIFT OR FROM THE REPORT I RECEIVED FROM THE DAY SHIFT RN . RT INCREASED THE FIO2 TO 45 % NEAR 2245 BASED ON HIS EXPERIENCE. PATIENT DOES NOT APPEAR IN DISTRESS OR CYANOTIC.
[2019-04-15] VITALS (32 sets, daily range): BP systolic 86–142; BP diastolic 50–83
[2019-04-15] MEDS: normal saline 1000ml 1,000 ML IV SCH ×4 (00:40→20:44)
[2019-04-15] MEDS: clindamycin-Cleocin 900mg/D5W 50 ML IV SCH ×3 (01:09→16:35)
[2019-04-15] MEDS: metroNIDAZOLE-Flagyl 500mg/NS 100 ML IV SCH ×3 (01:10→16:35)
[2019-04-15] MEDS: morphine 2 MG/ML inj. syringe IV PRN ×2 (01:30→21:00)
[2019-04-15] MEDS: midazolam 2 mg/2 ml injection IV PRN ×7 (01:40→20:10)
--- NOTE | 2019-04-15 01:42 | NUR ---
attempting to change CLD. PATIENT WAKES AND FOLLOWS COMMANDS APPROPRIATELY. NODS YES TO PAIN. MORPHINE GIVE PER ORDER. AFTER A FEW MINUTES, I TRIED TO CHANGE THE DRESSING. PATIENT WOKE VERY AGITATED MOUTHING "I CANT BREATH, ANXIOUS AND KICKING LEGS AND TURNING HEAD SIDE TO SIDE. I GAVE VERSED 2 MG WHICH IS HALF OF THE ORDERED DOSE. I WANT TO SEE HOW THE MORPHINE AND VERSED AFFECT PATIENT AND VS. IF I NEED TO GIVE THE 2ND 1/2 OF THE DOSE - WILL AYDEE IT APPROPRIATELY. IF I DO NOT GIVE IT, I WILL WASTE APPROPRIATELY. ALL PROCEDURES EXPLAINED TO PATIENT AND ALSO REORIENTED HER TO CURRENT EVENTS AND RECENT VISITORS. SUPPORT GIVEN Addendum: 04/15/19 at 0434 by Ismael Casillas RN correction above "attempting to change CLD" CLD is central line dressing
[2019-04-15 03:25] LABS: ABG HCO3 19.6 mmol/L (22.0-26.0); ABG OXYGEN SATURATION 97.7 % (95-98); ABG PCO2 (T) 25.7 mmHg (35.0-45.0); ABG PH (T) 7.499 (7.350-7.450); ABG PO2 (T) 103.3 mmHg (83-108); FCOHb 0.2 % (0.5-1.5); FMetHb 0.1 % (0.3-1.12); FO2Hb 97.4 % (94-100); MINUTE VOLUME 11 L/min; PATIENT TEMPERATURE 37.1; PEEP 5 cm H2O; RESPIRATORY RATE 18 b/min; RESPIRATORY RATE (OBSERVED) 20 b/min; TIDAL VOLUME 450 mL; TOTAL HEMOGLOBIN 13.9 G/dl (12.0-16.0)
[2019-04-15 03:47] LABS: ALBUMIN 1.8 G/DL (3.4-5.0); ANION GAP 7 (8-16); BLOOD UREA NITROGEN 41 MG/DL (7-18); BUN/CREATININE RATIO 32.3 (6.6-38.0); CALCIUM 6.5 MG/DL (8.5-10.1); CHLORIDE 105 MMOL/L (99-107); CREATININE 1.27 MG/DL (0.40-0.90); GLUCOSE 90 MG/DL (70-104); MAGNESIUM 1.8 MG/DL (1.5-2.4); POTASSIUM 4.5 MMOL/L (3.5-5.1); SODIUM 134 MMOL/L (135-145); TOTAL CARBON DIOXIDE 21.8 MMOL/L (24-32); eGFR 44 ML/MIN
[2019-04-15 03:48] LABS: BASOPHILS % (AUTO) 0.2 % (0-1); EOSINOPHILS # (AUTO) 0.3 X10'3 (0-0.9); EOSINOPHILS % (AUTO) 1.5 % (0-6); HEMATOCRIT 39.7 % (35.0-45.0); HEMOGLOBIN 13.3 g/dl (12.0-16.0); LYMPHOCYTES % (AUTO) 5.7 % (21-51); MEAN CORPUSCULAR HEMOGLOBIN 30.2 PG (27.0-31.0); MEAN CORPUSCULAR HGB CONC 33.4 g/dL (33.0-36.5); MEAN CORPUSCULAR VOLUME 90.4 FL (78-98); MEAN PLATELET VOLUME 8.8 FL (7.4-10.4); MONOCYTES # (AUTO) 1.1 X10'3 (0-0.9); MONOCYTES % (AUTO) 6.3 % (2-12); NEUTROPHILS % (AUTO) 86.3 % (42-75); PLATELET COUNT 104 X10'3 (140-440); RED BLOOD COUNT 4.39 X10'6 (4.20-5.60); RED CELL DISTRIBUTION WIDTH 13.8 % (11.5-14.5); WHITE BLOOD COUNT 17.4 X10'3 (4.5-11.0)
--- NOTE | 2019-04-15 04:00 | NUR ---
4 AM ASSESSMENT PULSES. LLL WITH ALL DOPPLER PULSES WEAKER DP THAN PT. RLE WITH VERY WEAK DOPPLER DP AND PT. STRONG POPLITEAL. REMAINS MOTTLED THROUGH OUT
[2019-04-15 04:03] LABS: BANDS% (MANUAL) 4 % (0-10); LYMPHOCYTES % (MANUAL) 6 % (21-51); MONOCYTES % (MANUAL) 4 % (2-12); NEUTROPHILS % (MANUAL) 86 % (42-75); NUCLEATED RED BLOOD CELLS 4 /100WBC (0-0); PLATELET ESTIMATE DECREASED; TOTAL CELLS COUNTED 100
[2019-04-15 04:04] LABS: TOXIC GRANULATION 1+; TOXIC VACUOLATION 1+
--- NOTE | 2019-04-15 04:34 | NUR ---
after the central line dressing was change patient did receive the second dose of versed for a total of 4 mg. patient becomes very agitated and anxious. calm and rests comfortably after the second versed dose. bed and bath complete. picture taken of wounds. patient is weeping from various areas. 1) right a/c - optifoam applied. left thigh in all areas of previous needle insertion sites - bandaids and optifoam applied. left knee appears to have an abrasion looking area however this area was only discolored when i admitted this patient to icu on 04/13/2019 at 2050. currently appears to be a scabbed abrasion. also area on lateral outer thigh moving towards back of thigh. perhaps an abscess. this also was not present when patient arrived to icu on 04/13/20192049. picture taken and placed in bedside chart. wound consult generated after described in notes. skin is tight and shiny in delicate areas like isis area. VS remain stable. left leg elevated on pillows. Addendum: 04/15/19 at 9526 by Ismael Casillas RN also patient became more awake and restless/anxious - versed 2 mg iv given. will give second 2 mg if needed - if not, i will waste it. will monitor vs
--- NOTE | 2019-04-15 04:46 | NUR ---
PLEASE NOTE - THE BED SOMEHOW WAS RE-ZERO'D WHILE PATIENT WAS IN THE BED (PERHAPS AT CT?). UNABLE TO GET A WEIGHT. NOTE ON BED TO REMIND TO RE-ZERO BED IF PATIENT SHOULD HAPPEN TO GO TO A PROCEDURE
--- NOTE | 2019-04-15 06:56 | NUR ---
Patient in room ICU 2041. I have received report from sImael Gibbs RN and had the opportunity to ask questions and assume patient care.
[2019-04-15] MEDS: lactobacillus rhamnosus 10,000 MMU CELLS/CAPSULE PO SCH ×2 (07:53→20:11)
[2019-04-15] MEDS: enoxaparin 40mg/0.4ml syringe SQ SCH (07:53)
[2019-04-15] MEDS: K and/or MAG REPLACEMENT MC SCH (08:00)
--- NOTE | 2019-04-15 08:15 | NUR ---
Dr. Mcdowell assessed patient wound to left thigh, he states he will take her for an incision and drainage this afternoon. Consent placed on chart.
[2019-04-15 08:20] LABS: HBSAG SCREEN Negative (Negative); HEP A AB, IGM Negative (Negative); HEP B CORE AB, IGM Negative (Negative); HEPATITIS C ANTIBODY 0.4 s/co ratio (0.0-0.9)
--- NOTE | 2019-04-15 08:51 | NUR ---
Left a message with Dr. John to call back regarding patient condition.
[2019-04-15 08:55] LABS: PO2 MIXED VENOUS (TEMP COR) 36.6 mmHg (35-46)
[2019-04-15] MEDS: NORepinephrine 8mg/ 250ml NS 250 ML IV PRN ×3 (09:01→20:02)
[2019-04-15] MEDS: vasopressin inj. 20 UNIT in normal saline 100ml IV soln 39 ML IV SCH (09:10)
[2019-04-15 09:45] LABS: PARTIAL THROMBOPLASTIN TIME 130 SECONDS (22-32)
[2019-04-15 10:12] LABS: CREATINE KINASE 22876 U/L (26-192)
[2019-04-15] MEDS ORDERED: normal saline 1000ml 1,000 ML IV ONE ×2 (10:15→18:20)
[2019-04-15] MEDS ORDERED: ringers solution, lacted 1,000 ML IV SCH (11:18)
[2019-04-15] MEDS ORDERED: ondansetron/PF 4mg/2ml inj IV PRN (11:20)
[2019-04-15] MEDS ORDERED: meperidine/PF 25mg/ml syringe IV PRN ×3 (11:20)
[2019-04-15] MEDS ORDERED: proCHLORperazine 10 MG/2 ml inj IV PRN (11:20)
[2019-04-15] MEDS ORDERED: morphine 4 MG/ML inj SYRINge IV PRN ×2 (11:20)
[2019-04-15 12:27] LABS: ALANINE AMINOTRANSFERASE 1491 U/L (12-78); ASPARTATE AMINO TRANSFERASE 2976 U/L (10-37)
--- NOTE | 2019-04-15 14:01 | NUR ---
Tube feeding consult, OK by MD to start tube feedings today per OG tube. Patient is intubated and sedated. s/p code blue this r/t hyperkalemia per swine extension field specialist. Had then received Kayexalate. Na 134 receiving NS as well. Patient with myositis, sepsis, cellulitis per MD note. New bed scale wt 76kg likely not accurate given 57kg prior chair scale wt and pt visible low wt. Pt has L side +3 pitting edema in addition to severe weakness and qualifies for severe malnutrition at this time; MD notified. Not appropriate for ed. Will continue to follow. Rec: 1. Continuous tube feeding using Vital AF at 75ml/hr goal, start at 20 ml/hr and increase by 20 ml q 8 hours. Will provide total volume of 1800 ml, 2160 cals, 135 gm protein, and 1458 ml water. 2. Additional free water per swine extension field specialist; Na 134 3. prealbumin Q M/, daily wts 4. When extubated, advance diet as medically indicated to regular Addendum: 04/15/19 at [address] Amended: Links added.
[2019-04-15] MEDS ORDERED: BUPIVAcaine/PF 2.5 mg/ml (0.25%) 30ml vial ONE (14:30)
--- NOTE | 2019-04-15 14:55 | NUR ---
Maryse taken to OR for I&D with Dr. Mcdowell, Dr. Taylor and surgical crew.
[2019-04-15] MEDS ORDERED: sevoflurane 250ml liquid IH ONE (15:00)
[2019-04-15] MEDS ORDERED: NORepinephrine bitartrate 8 MG in NS 250 ML BAG (32 mcg/ml) IV ONE (15:00)
[2019-04-15] MEDS ORDERED: rocuronium 10mg/ml inj IV ONE (15:12)
[2019-04-15] MEDS ORDERED: VANCOmycin 1250MG/NS 250ml Bag 250 ML IV SCH (16:00)
--- NOTE | 2019-04-15 16:30 | NUR ---
Patient arrived back from OR, wound vac was not suctioning sangenous drainage. Contacted Dr. Mcdowell. He sent Dwayne Lopez RN. WOund vac changed and draining better still clotting in tubing. Patient comfortable. Daughter and son updated. Levo increased to 20mcg, giving liter saline bolus to maintain CVP 11.
[2019-04-15 17:21] LABS: PARTIAL THROMBOPLASTIN TIME 57 SECONDS (22-32)
--- NOTE | 2019-04-15 18:35 | NUR ---
Patient in room ICU 2041. I have received report from Dian RIVERA, and had the opportunity to ask questions and assume patient care.
--- NOTE | 2019-04-15 18:40 | NUR ---
Problems reprioritized. Patient report given, questions answered & plan of care reviewed with Hiren Poole RN.
--- NOTE | 2019-04-15 19:00 | NUR ---
PT is intubated and tolerating vent settings well. FiO2 is 80%, previous nurse stated that the PT arrived from OR on 80%. Will communicate with RT and titrate down as PT tolerates, Previously was on an FiO2 of 40%. PT is not on any sedation at this time and appears to be comfortable. PT has WV drsgs to LT medial and lateral thigh. Lateral drsg has more sanguineous drainage noted than the medial. New Canister placed at shift change d/t alarming. WV working correctly with no issues noted at this time. PT receiving a 1L bolus which was started by previous nurse for CVP less than 11. Bed is locked and low. Bilat soft wrist restraints in place and secure. Will continue to monitor.
[2019-04-15 19:15] LABS: HEMATOCRIT 28.4 % (35.0-45.0); HEMOGLOBIN 9.6 g/dl (12.0-16.0); MEAN CORPUSCULAR HEMOGLOBIN 30.7 PG (27.0-31.0)
[2019-04-15 19:17] LABS: BASOPHILS % (AUTO) 0.3 % (0-1); EOSINOPHILS # (AUTO) 0.2 X10'3 (0-0.9); EOSINOPHILS % (AUTO) 1.3 % (0-6); LYMPHOCYTES # (AUTO) 1.4 X10'3 (1.1-4.8); LYMPHOCYTES % (AUTO) 7.4 % (21-51); MEAN CORPUSCULAR HGB CONC 33.9 g/dL (33.0-36.5); MEAN CORPUSCULAR VOLUME 90.6 FL (78-98); MEAN PLATELET VOLUME 8.9 FL (7.4-10.4); MONOCYTES # (AUTO) 1.3 X10'3 (0-0.9); MONOCYTES % (AUTO) 6.8 % (2-12); NEUTROPHILS # (AUTO) 15.5 X10'3 (1.8-7.7); NEUTROPHILS % (AUTO) 84.2 % (42-75); PLATELET COUNT 76 X10'3 (140-440); RED BLOOD COUNT 3.13 X10'6 (4.20-5.60); RED CELL DISTRIBUTION WIDTH 14.3 % (11.5-14.5); WHITE BLOOD COUNT 18.4 X10'3 (4.5-11.0)
[2019-04-15 19:31] LABS: ALANINE AMINOTRANSFERASE 712 U/L (12-78); ALBUMIN/GLOBULIN RATIO 0.7 (1.1-1.5); ALKALINE PHOSPHATASE 82 IU/L (46-116); ANION GAP 8 (8-16); BILIRUBIN,TOTAL 0.7 MG/DL (0.1-1.0); BLOOD UREA NITROGEN 59 MG/DL (7-18); BUN/CREATININE RATIO 31.6 (6.6-38.0); CHLORIDE 109 MMOL/L (99-107); CREATININE 1.87 MG/DL (0.40-0.90); GLUCOSE 125 MG/DL (70-104); POTASSIUM 4.6 MMOL/L (3.5-5.1); SODIUM 136 MMOL/L (135-145); TOTAL CARBON DIOXIDE 18.9 MMOL/L (24-32); TOTAL PROTEIN 2.5 G/DL (6.4-8.2); eGFR 28 ML/MIN
[2019-04-15 19:35] LABS: CALCIUM 5.5 MG/DL (8.5-10.1)
[2019-04-15 19:36] LABS: ASPARTATE AMINO TRANSFERASE 1340 U/L (10-37)
[2019-04-15] MEDS ORDERED: calcium gluconate inj. 3 GM in normal saline 100ml IV soln 70 ML IV ONE (19:40)
[2019-04-15] MEDS: famotidine/PF 10 mg/ml inj IV SCH (20:11)
[2019-04-15] MEDS: insulin glargine (Lantus) pen - multi-dose SQ SCH (21:00)
--- NOTE | 2019-04-15 21:17 | NUR ---
Daughter (Daisy) at bedside; pts belongings, including 3 rings, 7 earrings, 3 bracelets, a wallet and a bag of clothing sent home with her. Upper denture, cell phone and tablet still at bedside.
[2019-04-15] MEDS ORDERED: midazolam 100mg in NS 100ml 100 ML IV PRN (21:33)
[2019-04-15] MEDS ORDERED: albumin (human) 25% 100 ML IV solution IV ONE (21:35)
--- NOTE | 2019-04-15 21:40 | NUR ---
LENNOX Askew called D/T PT being restless and painful. PRN IVP Versed and Morphine had been given with little effect. RR is 38. Order received to start Fentanyl and Versed drips. Also updated him on PT continued output from WV, order received to have 1 unit of PRBCs on standby if needed. Also received order for 200ml of 25% albumin to maintain CVP of 11, currently CVP is 9. Will continue to monitor.
[2019-04-15] MEDS: FENTANYL-0.9 % NACL/PF 100 ML IV PRN (21:45)
--- NOTE | 2019-04-15 22:00 | NUR ---
LENNOX Askew notified and updated on PT condition. PT has had very steady output from Lateral WV drsg to LT thigh. PT had significant drop in H&H. Order received to have one unit of PRBCs ready. Will draw morning labs early and will continue to monitor.
--- NOTE | 2019-04-15 22:06 | NUR ---
Dr. Romo Called D/T PT continued bleeding. Gave him update on PT condition, PT has been putting out 100ml/hr out of WV, drainage is sanguineous. Order received to reduce WV suction from 125mmHg to 100mmHg. Will continue to monitor.
[2019-04-16] VITALS (30 sets, daily range): BP systolic 59–143; BP diastolic 32–65
[2019-04-16] MEDS: clindamycin-Cleocin 900mg/D5W 50 ML IV SCH ×2 (00:20→07:58)
--- NOTE | 2019-04-16 00:30 | NUR ---
LENNOX Askew called d/t PT copious sanguineous drainage from WV drsg. Drsg is now leaking and bed was saturated with blood. BP trending down while being on 20mcg of levo and titrating up. Labs drawn and still pending. Order received to give the one unit of PRBC's and to order 2 more to have ready. Will continue to monitor
[2019-04-16 00:53] LABS: MEAN CORPUSCULAR HEMOGLOBIN 30.8 PG (27.0-31.0); MEAN CORPUSCULAR HGB CONC 33.4 g/dL (33.0-36.5); MEAN CORPUSCULAR VOLUME 92.1 FL (78-98); RED BLOOD COUNT 1.91 X10'6 (4.20-5.60)
[2019-04-16] MEDS: NORepinephrine 8mg/ 250ml NS 250 ML IV PRN ×3 (00:53→14:07)
[2019-04-16 00:55] LABS: BASOPHILS % (AUTO) 0.1 % (0-1); EOSINOPHILS # (AUTO) 0.3 X10'3 (0-0.9); EOSINOPHILS % (AUTO) 1.7 % (0-6); LYMPHOCYTES # (AUTO) 1.2 X10'3 (1.1-4.8); LYMPHOCYTES % (AUTO) 8.3 % (21-51); MEAN PLATELET VOLUME 8.5 FL (7.4-10.4); MONOCYTES # (AUTO) 0.8 X10'3 (0-0.9); MONOCYTES % (AUTO) 5.6 % (2-12); NEUTROPHILS # (AUTO) 12.5 X10'3 (1.8-7.7); NEUTROPHILS % (AUTO) 84.3 % (42-75); WHITE BLOOD COUNT 14.9 X10'3 (4.5-11.0)
--- NOTE | 2019-04-16 01:03 | NUR ---
Dr. Mcdowell Called again d/t not receiving a call back. Still no answer, left message. Answering service call as well.
[2019-04-16 01:04] LABS: HEMATOCRIT 17.6 % (35.0-45.0); HEMOGLOBIN 5.9 g/dl (12.0-16.0)
[2019-04-16 01:06] LABS: PLATELET COUNT 45 X10'3 (140-440)
[2019-04-16 01:07] LABS: ALANINE AMINOTRANSFERASE 571 U/L (12-78); ALBUMIN 2.1 G/DL (3.4-5.0); ALBUMIN/GLOBULIN RATIO 2.3 (1.1-1.5); ALKALINE PHOSPHATASE 71 IU/L (46-116); ANION GAP 14 (8-16); ASPARTATE AMINO TRANSFERASE 979 U/L (10-37); BILIRUBIN,TOTAL 1.2 MG/DL (0.1-1.0); BLOOD UREA NITROGEN 62 MG/DL (7-18); BUN/CREATININE RATIO 27.4 (6.6-38.0); CALCIUM 6.2 MG/DL (8.5-10.1); CHLORIDE 107 MMOL/L (99-107); CREATININE 2.26 MG/DL (0.40-0.90); GLUCOSE 66 MG/DL (70-104); MAGNESIUM 2.2 MG/DL (1.5-2.4); PHOSPHORUS 6.8 MG/DL (2.3-4.5); POTASSIUM 5.9 MMOL/L (3.5-5.1); PREALBUMIN 6.2 MG/DL (19-36); SODIUM 135 MMOL/L (135-145); eGFR 23 ML/MIN
[2019-04-16 01:09] LABS: TOTAL CARBON DIOXIDE 13.9 MMOL/L (24-32)
--- NOTE | 2019-04-16 01:10 | NUR ---
LENNOX Askew called d/t critical H&H and PLT. 1st unit of PRBCs infusing and order received for a 2nd unit as well as 1 PTL. Will continue to monitor.
[2019-04-16 01:24] LABS: NUCLEATED RED BLOOD CELLS 5 /100WBC (0-0); TOTAL CELLS COUNTED 100
[2019-04-16 01:25] LABS: PLATELET ESTIMATE DECREASED
[2019-04-16 01:27] LABS: D-DIMER 4.99 MG/L FEU (0-0.50)
[2019-04-16 01:28] LABS: PARTIAL THROMBOPLASTIN TIME > 153 SECONDS (22-32)
--- NOTE | 2019-04-16 01:30 | NUR ---
LENNOX Askew called for critical PTT of 153. Order received to give 2 units of FFP. Will continue to monitor.
--- NOTE | 2019-04-16 01:36 | NUR ---
Dr Mcdowell called again d/t no call back. He did answer, I updated him on PT condition. PT has had copious sanguineous drainage out of Lateral WV drsg. Order received to place ABD's over WV drsg and wrap with Buster wrap to create a pressure drsg. If the bleeding continues, then call him back. Updated on Lab values. 1 Unit of blood has been given thus far, 2nd unit infusing now. Will continue to monitor.
--- NOTE | 2019-04-16 01:52 | NUR ---
2nd bag of PRBC's Finished indfusing. Start time was 021 Addendum: 04/16/19 at 0153 by Hiren Retana RN 2nd bag of PRBC's Finished infusing. Start time was 129.
[2019-04-16] MEDS: metroNIDAZOLE-Flagyl 500mg/NS 100 ML IV SCH ×2 (02:25→07:58)
[2019-04-16] MEDS ORDERED: calcium gluconate inj. 3 GM in normal saline 100ml IV soln 70 ML IV ONE (03:00)
--- NOTE | 2019-04-16 03:00 | NUR ---
LENNOX Askew notified d/t PT BP decreased despite being on high dose levo. Order received to start Vasopressin and to give 2 units of Cryo for abnormal coag labs.
[2019-04-16] MEDS ORDERED: calcium gluconate inj. 3 GM in normal saline 100ml IV soln 100 ML IV ONE (03:04)
[2019-04-16] MEDS: vasopressin inj. 20 UNIT in normal saline 100ml IV soln 39 ML IV SCH ×2 (03:07→14:50)
[2019-04-16] MEDS: dextrose 50%-water 50ml dispensing syringe IV PRN (03:29)
[2019-04-16 04:01] LABS: ABG BASE EXCESS -15.6 mmol/L (-2.0-3.0); ABG HCO3 9.7 mmol/L (22.0-26.0); ABG OXYGEN SATURATION 89.8 % (95-98); ABG PH (T) 7.296 (7.350-7.450); ABG PO2 (T) 55.3 mmHg (83-108); FCOHb 0.2 % (0.5-1.5); FMetHb 0.5 % (0.3-1.12); FO2Hb 89.2 % (94-100); MINUTE VOLUME 15 L/min; PATIENT TEMPERATURE 35.4; PEEP 5 cm H2O; RESPIRATORY RATE 16 b/min; RESPIRATORY RATE (OBSERVED) 29 b/min; TIDAL VOLUME 450 mL; TOTAL HEMOGLOBIN 7.6 G/dl (12.0-16.0)
--- NOTE | 2019-04-16 04:15 | NUR ---
LENNOX Askew called for ABG results. Order received to draw Lactic. Will continue to monitor.
[2019-04-16 06:24] LABS: BASOPHILS % (AUTO) 0.1 % (0-1); EOSINOPHILS # (AUTO) 0.5 X10'3 (0-0.9); EOSINOPHILS % (AUTO) 2.7 % (0-6); HEMOGLOBIN 7.3 g/dl (12.0-16.0); LYMPHOCYTES # (AUTO) 1.7 X10'3 (1.1-4.8); LYMPHOCYTES % (AUTO) 8.8 % (21-51); MEAN CORPUSCULAR HEMOGLOBIN 30.3 PG (27.0-31.0); MEAN CORPUSCULAR HGB CONC 33.6 g/dL (33.0-36.5); MEAN CORPUSCULAR VOLUME 90.3 FL (78-98); MEAN PLATELET VOLUME 7.5 FL (7.4-10.4); MONOCYTES # (AUTO) 1.1 X10'3 (0-0.9); MONOCYTES % (AUTO) 5.7 % (2-12); NEUTROPHILS # (AUTO) 15.5 X10'3 (1.8-7.7); NEUTROPHILS % (AUTO) 82.7 % (42-75); PLATELET COUNT 59 X10'3 (140-440); RED BLOOD COUNT 2.42 X10'6 (4.20-5.60); RED CELL DISTRIBUTION WIDTH 14.6 % (11.5-14.5); WHITE BLOOD COUNT 18.7 X10'3 (4.5-11.0)
[2019-04-16 06:30] LABS: HEMATOCRIT 21.9 % (35.0-45.0)
--- NOTE | 2019-04-16 06:30 | NUR ---
Patient in room ICU 2041. I have received report from eula and had the opportunity to ask questions and assume patient care.
[2019-04-16 06:33] LABS: PARTIAL THROMBOPLASTIN TIME 67 SECONDS (22-32)
--- NOTE | 2019-04-16 06:35 | NUR ---
LENNOX Askew called for critical critical HCT. No answer, left message and waiting for call back.
[2019-04-16 06:49] LABS: ALBUMIN 1.8 G/DL (3.4-5.0); ALBUMIN/GLOBULIN RATIO 1.4 (1.1-1.5); ALKALINE PHOSPHATASE 115 IU/L (46-116); ANION GAP 18 (8-16); BILIRUBIN,TOTAL 1.7 MG/DL (0.1-1.0); BLOOD UREA NITROGEN 66 MG/DL (7-18); BUN/CREATININE RATIO 26.8 (6.6-38.0); CALCIUM 6.1 MG/DL (8.5-10.1); CHLORIDE 106 MMOL/L (99-107); CREATININE 2.46 MG/DL (0.40-0.90); GLUCOSE 111 MG/DL (70-104); MAGNESIUM 2.1 MG/DL (1.5-2.4); PHOSPHORUS 7.4 MG/DL (2.3-4.5); POTASSIUM 5.5 MMOL/L (3.5-5.1); SODIUM 136 MMOL/L (135-145); TOTAL PROTEIN 3.1 G/DL (6.4-8.2); eGFR 21 ML/MIN
[2019-04-16 06:51] LABS: D-DIMER 8.42 MG/L FEU (0-0.50)
--- NOTE | 2019-04-16 06:55 | NUR ---
Problems reprioritized. Patient report given, questions answered & plan of care reviewed with Shivani RIVERA.
[2019-04-16 07:06] LABS: ALANINE AMINOTRANSFERASE 1973 U/L (12-78); ASPARTATE AMINO TRANSFERASE 4451 U/L (10-37)
[2019-04-16 07:08] LABS: TOTAL CARBON DIOXIDE 11.9 MMOL/L (24-32)
[2019-04-16] MEDS: lactobacillus rhamnosus 10,000 MMU CELLS/CAPSULE PO SCH (07:58)
[2019-04-16] MEDS: famotidine/PF 10 mg/ml inj IV SCH (07:58)
[2019-04-16] MEDS: K and/or MAG REPLACEMENT MC SCH (08:00)
--- NOTE | 2019-04-16 08:00 | NUR ---
pt without cough when sx tin scant white sx with peak pressures high- sats 89%- brief periods of 100%, sats improved to 92%.pt opened eyes slightly to checking doppler pulses. doppler on rt, none on left as per recent. call to wound care re wound vac off on lateral drsg- here- will discuss with ortho .
[2019-04-16] MEDS: normal saline 1000ml 1,000 ML IV SCH ×2 (08:05→16:10)
[2019-04-16] MEDS ORDERED: epoetin 20,000 units/ml inj IV ONE (09:35)
[2019-04-16] MEDS ORDERED: normal saline 1000ml 250 ML IV PRN (09:35)
[2019-04-16] MEDS ORDERED: normal saline 1000ml 100 ML IV PRN (09:35)
[2019-04-16] MEDS ORDERED: heparin 1,000 units/ml 10ml inj HE ONE ×2 (09:40)
[2019-04-16 09:58] LABS: NUCLEATED RED BLOOD CELLS 2 /100WBC (0-0); PLATELET ESTIMATE DECREASED; TOTAL CELLS COUNTED 100; TOXIC GRANULATION 2+; TOXIC VACUOLATION FEW
[2019-04-16 10:00] LABS: BURR CELLS FEW; SCHISTOCYTES FEW
--- NOTE | 2019-04-16 10:00 | NUR ---
update to md, increasing levophed and restarted vasopressin. aware that cl leaking during the night, cvp 9- giving 1 liter of fluid. labs reported update to daughter and son during visit.
[2019-04-16] MEDS ORDERED: normal saline 1000ml 1,000 ML IVB ONE ×2 (13:06→14:29)
--- NOTE | 2019-04-16 14:00 | NUR ---
sats decreased-to 70's sx, put on 100%- not rising- rt here- abgs done- po2 in the 40's- peep to 10, sats improved to 90- 92
[2019-04-16 14:02] LABS: BASOPHILS % (AUTO) 0.2 % (0-1); EOSINOPHILS # (AUTO) 0.5 X10'3 (0-0.9); EOSINOPHILS % (AUTO) 2.6 % (0-6); HEMATOCRIT 22.3 % (35.0-45.0); HEMOGLOBIN 7.5 g/dl (12.0-16.0); LYMPHOCYTES # (AUTO) 1.9 X10'3 (1.1-4.8); MEAN CORPUSCULAR HGB CONC 33.9 g/dL (33.0-36.5); MEAN CORPUSCULAR VOLUME 91.5 FL (78-98); MEAN PLATELET VOLUME 8.1 FL (7.4-10.4); MONOCYTES % (AUTO) 4.8 % (2-12); NEUTROPHILS # (AUTO) 17.2 X10'3 (1.8-7.7); NEUTROPHILS % (AUTO) 83.4 % (42-75); PLATELET COUNT 56 X10'3 (140-440); RED BLOOD COUNT 2.43 X10'6 (4.20-5.60); RED CELL DISTRIBUTION WIDTH 15.2 % (11.5-14.5); WHITE BLOOD COUNT 20.7 X10'3 (4.5-11.0)
[2019-04-16] MEDS: FENTANYL-0.9 % NACL/PF 100 ML IV PRN (14:09)
[2019-04-16 14:21] LABS: ALBUMIN 1.3 G/DL (3.4-5.0); ALBUMIN/GLOBULIN RATIO 0.9 (1.1-1.5); ALKALINE PHOSPHATASE 135 IU/L (46-116); ANION GAP 12 (8-16); BILIRUBIN,TOTAL 1.2 MG/DL (0.1-1.0); BLOOD UREA NITROGEN 71 MG/DL (7-18); BUN/CREATININE RATIO 29.7 (6.6-38.0); CHLORIDE 109 MMOL/L (99-107); CREATININE 2.39 MG/DL (0.40-0.90); GLUCOSE 93 MG/DL (70-104); MAGNESIUM 1.9 MG/DL (1.5-2.4); PHOSPHORUS 7.3 MG/DL (2.3-4.5); SODIUM 137 MMOL/L (135-145); TOTAL CARBON DIOXIDE 16.3 MMOL/L (24-32); TOTAL PROTEIN 2.7 G/DL (6.4-8.2); eGFR 21 ML/MIN
[2019-04-16 14:26] LABS: ABG BASE EXCESS -11.9 mmol/L (-2.0-3.0); ABG OXYGEN SATURATION 76.7 % (95-98); ABG PCO2 (T) 31.9 mmHg (35.0-45.0); ABG PH (T) 7.262 (7.350-7.450); ABG PO2 (T) 49.7 mmHg (83-108); FCOHb 0.2 % (0.5-1.5); FMetHb 0.3 % (0.3-1.12); FO2Hb 76.3 % (94-100); MINUTE VOLUME 12 L/min; PATIENT TEMPERATURE 37.2; PEEP 5 cm H2O; RESPIRATORY RATE 16 b/min; RESPIRATORY RATE (OBSERVED) 24 b/min; TIDAL VOLUME 450 mL; TOTAL HEMOGLOBIN 8.7 G/dl (12.0-16.0)
[2019-04-16 14:28] LABS: CALCIUM 5.5 MG/DL (8.5-10.1); D-DIMER 11.66 MG/L FEU (0-0.50); POTASSIUM 6.1 MMOL/L (3.5-5.1)
[2019-04-16 14:29] LABS: PARTIAL THROMBOPLASTIN TIME 81 SECONDS (22-32)
[2019-04-16 14:34] LABS: ALANINE AMINOTRANSFERASE 2263 U/L (12-78); ASPARTATE AMINO TRANSFERASE 6069 U/L (10-37)
--- NOTE | 2019-04-16 15:30 | NUR ---
sats down to 70's, sx- bagged- no change. dr connolly here- peep to 15 and changed to acpc. hd in duration. sbp down to 80's- fluid given back- levo up to max and vasopressin up and up
[2019-04-16] MEDS ORDERED: CISatracurium besylate inj. 100 MG in dextrose 5%-water 50ml 40 ML IV PRN (16:15)
--- NOTE | 2019-04-16 17:00 | NUR ---
nimbex gtt started and increased- rr with vent at 16. left leg drsg changed per order- wv drsg removed laterally and wet to dry drsg applieed- much clot- no active bleed. labs redrawn - reported to
--- NOTE | 2019-04-16 17:45 | NUR ---
sats from 97 to 79- sx, little secretions- hr at 55 and dropping- epi given and code called. pito paulino here- dr snyder called. daughter called b4 code to update re oxygenation, bp and rotorest- message left.
--- NOTE | 2019-04-16 18:24 | NUR ---
pacer applied during code, hr and bp up , then down again- dr snyder here- code stopped- pacer off. daughter called again and here. pt prounced at 1824. spoke with family
--- NOTE | 2019-04-16 20:12 | NUR ---
RN IS TO DOCUMENT YES TO ALL APPLICABLE AREAS Pronouncement of : Dr. Lim 1. Time Physician Notified: 1809 2. Date of : 04/16/19 3. Time of : 1823 4. DNR/Withdraw life support documented: 5. Monitor strip has been placed on chart: Yes 6. Assessment process is of one-minute duration and includes following criteria: a) Patient is unresponsive to all stimuli: Yes b) Pupils fixed and non-reactive: Yes c) Auscultation of precordium reveals absence of heart tones: Yes d) Auscultation of lungs reveals absence of breath sounds: Yes e) Absence of blood pressure / all vital signs: Yes f) QRS complexes are not present on monitor / EKG strip: Yes g) Pacer spikes without capture: Yes 4. Comments: Dr Lim was present at bedside when code was ended and pronounced time of . PT's son and daughter came into the room and spent time saying their goodbyes. Donor network was called, PT is not a candidate. PT's son made the decision on [facility] and [facility] was called. Tablet and phone were found in PT drawer after family took the rest of the belongings. Call made to son, there was no answer and message was left. Have not received a return call. If family does not call back the tablet and cell phone will be sent with PT to [facility].
[2019-04-17 03:40] LABS: ISTAT CREATININE 2.3 mg/dL (0.6-1.1); ISTAT IONIZED CALCIUM 0.9 mmol/L (1.03-1.32); POC BUN/CREATININE RATIO 29.1 (6.6-38.0)
[2019-04-18] MEDS ORDERED: VANCOMYCIN LEVEL IV ONE (15:30)
[2019-04-20 14:24] LABS: ISTAT K 6.7 mmol/L (3.5-5.1)
== END 2019-04-16 18:24 | disposition expired | DRG 710 ==
LOC: ER 10:11 → SUR 3N 21:12 → ICU 2S 04-13 20:53
PROVIDERS: ADMIT Hospitalist; ATTEND Internal Medicine Critical Care Medicine
PROC: BQ2S1ZZ Computerized Tomography (CT Scan) of Left Lower Extremity using Low Osmolar Contrast (ICD-10-PCS; 2019-04-11)
PROC: B4201ZZ Computerized Tomography (CT Scan) of Abdominal Aorta using Low Osmolar Contrast (ICD-10-PCS; 2019-04-14)
PROC: B4241ZZ Computerized Tomography (CT Scan) of Superior Mesenteric Artery using Low Osmolar Contrast (ICD-10-PCS; 2019-04-14)
PROC: B4281ZZ Computerized Tomography (CT Scan) of Bilateral Renal Arteries using Low Osmolar Contrast (ICD-10-PCS; 2019-04-14)
PROC: B42H1ZZ Computerized Tomography (CT Scan) of Bilateral Lower Extremity Arteries using Low Osmolar Contrast (ICD-10-PCS; 2019-04-14)
PROC: B4211ZZ Computerized Tomography (CT Scan) of Celiac Artery using Low Osmolar Contrast (ICD-10-PCS; 2019-04-14)
PROC: B42H1ZZ Computerized Tomography (CT Scan) of Bilateral Lower Extremity Arteries using Low Osmolar Contrast (ICD-10-PCS; 2019-04-14)
PROC: 04HY32Z Insertion of Monitoring Device into Lower Artery, Percutaneous Approach (ICD-10-PCS; 2019-04-14)
PROC: 4A133B1 Monitoring of Arterial Pressure, Peripheral, Percutaneous Approach (ICD-10-PCS; 2019-04-14)
PROC: 4A133J1 Monitoring of Arterial Pulse, Peripheral, Percutaneous Approach (ICD-10-PCS; 2019-04-14)
PROC: 02HV33Z Insertion of Infusion Device into Superior Vena Cava, Percutaneous Approach (ICD-10-PCS; 2019-04-14)
PROC: B548ZZA Ultrasonography of Superior Vena Cava, Guidance (ICD-10-PCS; 2019-04-14)
PROC: 4A0F33Z Measurement of Musculoskeletal Contractility, Percutaneous Approach (ICD-10-PCS; 2019-04-14)
PROC: 5A1D70Z Performance of Urinary Filtration, Intermittent, Less than 6 Hours Per Day (ICD-10-PCS; 2019-04-14)
PROC: 0BH17EZ Insertion of Endotracheal Airway into Trachea, Via Natural or Artificial Opening (ICD-10-PCS; 2019-04-14)
PROC: 5A1945Z Respiratory Ventilation, 24-96 Consecutive Hours (ICD-10-PCS; 2019-04-14)
PROC: 5A12012 Performance of Cardiac Output, Single, Manual (ICD-10-PCS; 2019-04-14)
PROC: 0KNR0ZZ Release Left Upper Leg Muscle, Open Approach (ICD-10-PCS; 2019-04-15)
PROC: 0KNR0ZZ Release Left Upper Leg Muscle, Open Approach (ICD-10-PCS; 2019-04-15)
PROC: 0KNR0ZZ Release Left Upper Leg Muscle, Open Approach (ICD-10-PCS; 2019-04-15)
PROC: 30233K1 Transfusion of Nonautologous Frozen Plasma into Peripheral Vein, Percutaneous Approach (ICD-10-PCS; 2019-04-15)
PROC: 0J9M0ZZ Drainage of Left Upper Leg Subcutaneous Tissue and Fascia, Open Approach (ICD-10-PCS; principal; 2019-04-15 15:00)
PROC: 30233K1 Transfusion of Nonautologous Frozen Plasma into Peripheral Vein, Percutaneous Approach (ICD-10-PCS; 2019-04-16)
PROC: 30233N1 Transfusion of Nonautologous Red Blood Cells into Peripheral Vein, Percutaneous Approach (ICD-10-PCS; 2019-04-16)
PROC: 30233R1 Transfusion of Nonautologous Platelets into Peripheral Vein, Percutaneous Approach (ICD-10-PCS; 2019-04-16)
PROC: 30233M1 Transfusion of Nonautologous Plasma Cryoprecipitate into Peripheral Vein, Percutaneous Approach (ICD-10-PCS; 2019-04-16)
PROC: 5A1D70Z Performance of Urinary Filtration, Intermittent, Less than 6 Hours Per Day (ICD-10-PCS; 2019-04-16)
DX: A41.9 Sepsis, unspecified organism (principal); D65 Disseminated intravascular coagulation [defibrination syndrome]; N17.0 Acute kidney failure with tubular necrosis; R65.21 Severe sepsis with septic shock; E43 Unspecified severe protein-calorie malnutrition; C92.10 Chronic myeloid leukemia, BCR/ABL-positive, not having achieved remission; E87.2 Acidosis; L02.416 Cutaneous abscess of left lower limb; J80 Acute respiratory distress syndrome; E87.1 Hypo-osmolality and hyponatremia; L03.116 Cellulitis of left lower limb; F17.210 Nicotine dependence, cigarettes, uncomplicated; M62.82 Rhabdomyolysis; E87.5 Hyperkalemia; B19.20 Unspecified viral hepatitis C without hepatic coma; M60.052 Infective myositis, left thigh; M79.A22 Nontraumatic compartment syndrome of left lower extremity; W18.39XA Other fall on same level, initial encounter; Z88.6 Allergy status to analgesic agent; Z88.1 Allergy status to other antibiotic agents; Z79.899 Other long term (current) drug therapy; I46.8 Cardiac arrest due to other underlying condition; Z68.25 Body mass index [BMI] 25.0-25.9, adult; Y93.89 Activity, other specified; Y92.89 Other specified places as the place of occurrence of the external cause; Y99.8 Other external cause status
CPT/HCPCS: 36415; 36600; 71045; 73701; 73706; 74018; 74174; 80047; 80048; 80053; 80074; 80202; 80305; 81001; 81025; 82330; 82550; 82800; 82803; 82810; 82948; 83036; 83605; 83735; 83874; 84075; 84080; 84100; 84134; 84145; 84450; 84460; 84484; 85018; 85025; 85379; 85384; 85610; 85730; 86703; 86885; 86900; 86901; 86920; 87040; 87070; 87075; 87081; 87088; 87102; 92950; 93005; 93308; 93922; 93926; 93971; 94002; 94003; 94760; 96361; 96365; 96366; 96368; 96375; 96376; 99285; A4618; A6550; A7000; G0257; G0378; J0171; J0360; J0461; J0610; J1644; J1650; J1720; J1815; J2001; J2250; J2270; J2405; J2543; J3010; J3370; J3490; J7030; J7040; J7060; J7120; P9012; P9016; P9035; P9045; P9047; P9059; Q4081; Q9963; Q9967